=== PATIENT | female | born 1950 | race Caucasian/White ===

== ENCOUNTER → 2017-05-24 | Outpatient (CLI) | payer MEDICARE, OTHER ==
[~2017-05-24] MED LIST: ALBIPROI INH; ALBU90OI61 INH; ATEN25 PO; BENZ100A PO; DOXY100 PO; FLUSAL1005 IH; FLUSAL2505 IH; HYDACE5; HYDACE5 PO; HYDACE5325 PO; HYDR1TAB94 PO; LISI20 PO; METO25ER PO; METO50 PO; MONT10T PO; NAPR550 PO; PRED20 PO; RANI150 PO
== END ==
LOC: LAB EV 15:15
DX: N39.0 Urinary tract infection, site not specified (principal)
CPT/HCPCS: 87086

== ENCOUNTER → 2017-10-05 | Outpatient (CLI) | payer MEDICARE, OTHER | END | disposition home or self-care (01) | LOC: LAB SHORT 10:12 → LAB EV 10:12 | DX: R30.0 Dysuria (principal) | CPT/HCPCS: 87077; 87086; 87186 ==

== ENCOUNTER → 2018-05-11 | Outpatient (CLI) | payer MEDICARE, OTHER | END | disposition home or self-care (01) | LOC: LAB SHORT 13:40 → LAB EV 13:40 | DX: N39.0 Urinary tract infection, site not specified (principal) | CPT/HCPCS: 87077; 87086; 87147; 87186 ==

== ENCOUNTER 2019-12-30 14:32 | Observation (INO) | payer MEDICARE, OTHER ==
[~2019-12-30] VITALS: Ht 154.9 cm; Wt 58.9 kg
[~2019-12-30 14:32] MED LIST changes: -HYDR1TAB94 PO; -METO50 PO
[2019-12-30] MEDS ORDERED: Norco 10-325 T1 EACH PO (16:56)
[2019-12-30] MEDS ORDERED: Ventolin/Prove6.7 GM INH (16:57)
[2019-12-30] MEDS ORDERED: METO50ER PO (16:58)
[2019-12-30] MEDS ORDERED: METFORMIN HCL1000 M3 PO (16:59)
[2019-12-30] MEDS ORDERED: PANTOPRAZOLE SO40 M2 PO (17:00)
[2019-12-30 17:39] LABS: BASOPHILS ABSOLUTE AUTO 0.05 K/mm3 (0.00-0.23); BASOPHILS PERCENT AUTO 1 % (0-2); EOSINOPHILS ABSOLUTE AUTO 0.11 K/mm3 (0.00-0.68); EOSINOPHILS PERCENT AUTO 1 % (0-6); Hematocrit 41.1 % (33.0-51.0); Hemoglobin 13.1 g/dL (11.5-16.0); IMMATURE GRAN ABSOLUTE AUTO 0.02 K/mm3 (0.00-0.10); IMMATURE GRAN PERCENT AUTO 0 % (0-1); LYMPHOCYTES ABSOLUTE AUTO 2.98 K/mm3 (0.84-5.20); LYMPHOCYTES PERCENT AUTO 29 % (21-46); MONOCYTES PERCENT AUTO 5 % (4-13); Mean Corpuscular HGB 29.5 pg (26.0-34.0); Mean Corpuscular HGB Conc 31.9 g/dL (31.5-36.5); Mean Corpuscular Volume 93 fL (80-100); Mean Platelet Volume 11.1 fL (9.1-12.4); NEUTROPHILS ABSOLUTE AUTO 6.67 K/mm3 (1.96-9.15); NEUTROPHILS PERCENT AUTO 65 % (41-73); Platelet Count 199 K/mm3 (150-400); RDW Coefficient Variation 13.7 % (11.7-14.2); RDW Standard Deviation 46.8 fL (35.1-46.3); Red Blood Cell Count 4.44 M/mm3 (3.80-5.20); White Blood Cell Count 10.33 K/mm3 (4.00-11.30)
[2019-12-30 18:02] LABS: Alanine Aminotransfer (ALT/SGP 16 U/L (12-78); Albumin, Blood 3.2 g/dL (3.4-5.0); Albumin/Globulin Ratio 0.8 (0.8-1.8); Alk Phos 94 U/L (50-136); Anion Gap 5 mmol/L (6-16); Aspartate Aminotrans (AST/SGOT 15 U/L (12-37); Bilirubin, Total 0.3 mg/dL (0.1-1.0); Blood Urea Nitrogen 18 mg/dL (8-24); Bun/Creatinine Ratio 37.7 (12.0-20.0); CO2, Blood 29 mmol/L (21-32); Calcium, Blood 9.3 mg/dL (8.5-10.1); Chloride, Blood 109 mmol/L (98-108); Creatinine, Blood 0.48 mg/dL (0.40-1.00); Globulin, Blood 3.8 g/dL (2.2-4.0); Glomerular Filtration Rate >60 (60-); Glucose, Blood 163 mg/dL (70-99); Potassium, Blood 3.9 mmol/L (3.5-5.5); Sodium, Blood 143 mmol/L (136-145)
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
[2019-12-31 04:51] LABS: BASOPHILS ABSOLUTE AUTO 0.03 K/mm3 (0.00-0.23); BASOPHILS PERCENT AUTO 0 % (0-2); EOSINOPHILS ABSOLUTE AUTO 0.12 K/mm3 (0.00-0.68); EOSINOPHILS PERCENT AUTO 1 % (0-6); Hematocrit 41.2 % (33.0-51.0); Hemoglobin 12.6 g/dL (11.5-16.0); IMMATURE GRAN ABSOLUTE AUTO 0.02 K/mm3 (0.00-0.10); IMMATURE GRAN PERCENT AUTO 0 % (0-1); LYMPHOCYTES ABSOLUTE AUTO 2.92 K/mm3 (0.84-5.20); LYMPHOCYTES PERCENT AUTO 34 % (21-46); MONOCYTES ABSOLUTE AUTO 0.48 K/mm3 (0.16-1.47); MONOCYTES PERCENT AUTO 6 % (4-13); Mean Corpuscular HGB 28.6 pg (26.0-34.0); Mean Corpuscular HGB Conc 30.6 g/dL (31.5-36.5); Mean Corpuscular Volume 94 fL (80-100); Mean Platelet Volume 11.3 fL (9.1-12.4); NEUTROPHILS ABSOLUTE AUTO 5.14 K/mm3 (1.96-9.15); NEUTROPHILS PERCENT AUTO 59 % (41-73); Platelet Count 189 K/mm3 (150-400); RDW Coefficient Variation 13.9 % (11.7-14.2); RDW Standard Deviation 48.2 fL (35.1-46.3); White Blood Cell Count 8.71 K/mm3 (4.00-11.30)
--- NOTE | 2019-12-31 05:05 | NUR ---
SHIFT SUMMARY HOB ELEVATED AND O2 PER NC. FACIAL PRESTON TREATED WITH MEDICATED CREAM - SEE MAR FOR DETAILS. HAS BEEN RESTING QUIETLY WITH OCCASIONAL INTERRUPTION. CALL LIGHT IN REACH.
[2019-12-31 05:20] LABS: Albumin, Blood 3.1 g/dL (3.4-5.0); Anion Gap 5 mmol/L (6-16); Blood Urea Nitrogen 19 mg/dL (8-24); Bun/Creatinine Ratio 28.8 (12.0-20.0); CO2, Blood 29 mmol/L (21-32); Calcium, Blood 9.3 mg/dL (8.5-10.1); Chloride, Blood 107 mmol/L (98-108); Creatinine, Blood 0.66 mg/dL (0.40-1.00); Glomerular Filtration Rate >60 (60-); Glucose, Blood 189 mg/dL (70-99); Magnesium, Blood 1.8 mg/dL (1.6-2.4); Phosphorus, Blood 3.9 mg/dL (2.5-4.9); Potassium, Blood 3.8 mmol/L (3.5-5.5); Sodium, Blood 141 mmol/L (136-145)
[2019-12-31 05:37] LABS: Appearance, Urine Clear (Clear); Bilirubin, Urine Neg (Neg); Blood, Urine 4+ (Neg); Color, Urine Yellow (P-Yellow); Glucose Qualitative, Urine Neg (Neg); Ketones, Urine Neg (Neg); Leukocyte Esterase, Urine 2+ (Neg); Nitrite, Urine Pos (Neg); Protein, Urine 2+ (Neg); Urobilinogen, Urine NORM (Normal)
[2019-12-31 05:47] LABS: Bacteria Many /hpf; Red Blood Cells, Urine 0-2 /hpf (0-2); Squamous Epithelial Cells Mod /hpf (Few)
[2019-12-31] MEDS ORDERED: CEFU500T30 PO (11:37)
[2019-12-31] MEDS ORDERED: ACET325 PO (11:37)
[2019-12-31] MEDS ORDERED: CYCLOBENZAPRINE5 MG PO (11:38)
[2019-12-31] MEDS ORDERED: FAMO20 PO (11:38)
[2019-12-31] MEDS ORDERED: LISI20 PO (11:39)
[2019-12-31] MEDS ORDERED: FLUT1DIS5 INH (11:39)
[2019-12-31] MEDS ORDERED: Silvadene20 GM TOP ×2 (11:40→11:41)
[2019-12-31] MEDS ORDERED: NICO21TP TOP (11:40)
[2019-12-31] MEDS ORDERED: NAPR500 PO (11:40)
--- NOTE | 2019-12-31 12:31 | NUR ---
DISCHARGE INSTRUCTIONS REVIEWED WITH PATIENT. PRESCRIPTIONS FAXED TO [facility] IN DOWS WITH THE EXCEPTION OF THE BELLEVUE IN WHICH THE PATIENT WAS GIVEN A HARD SCRIPT. IV REMOVED. PATIENT AWAITING RIDE FOR DISCHARGE HOME.
--- NOTE | 2019-12-31 13:16 | NUR ---
PATIENT DISCHARGED HOME AT 1255.
== END 2019-12-31 13:01 | disposition home or self-care (01) ==
LOC: ER 14:32 → MEDS 14:33
PROVIDERS: ADMIT Internal Medicine Gastroenterology
DX: T20.26XA Burn of second degree of forehead and cheek, initial encounter (principal); T20.12XA Burn of first degree of lip(s), initial encounter; T20.14XA Burn of first degree of nose (septum), initial encounter; T31.0 Burns involving less than 10% of body surface; X08.8XXA Exposure to other specified smoke, fire and flames, initial encounter; N39.0 Urinary tract infection, site not specified; J44.9 Chronic obstructive pulmonary disease, unspecified; E66.01 Morbid (severe) obesity due to excess calories; G47.30 Sleep apnea, unspecified; I10 Essential (primary) hypertension; F17.210 Nicotine dependence, cigarettes, uncomplicated; K21.9 Gastro-esophageal reflux disease without esophagitis; Z79.899 Other long term (current) drug therapy
CPT/HCPCS: 16020; 36415; 80053; 80069; 81001; 83735; 85025; 87077; 87086; 87147; 87186; 96374-59; 99285-25; A9270-GY; G0378; J0360

== ENCOUNTER → 2020-04-04 | Outpatient (CLI) | payer MEDICARE, OTHER ==
[~2020-04-04] MED LIST changes: +ACET325 PO; +CEFU500T30 PO; +CYCLOBENZAPRINE5 MG PO; +FAMO20 PO; +FLUT1DIS5 INH; +METFORMIN HCL1000 M3 PO; +METO50ER PO; +NAPR500 PO; +NICO21TP TOP; +Norco 10-325 T1 EACH PO; +PANTOPRAZOLE SO40 M2 PO; +Silvadene20 GM TOP; +Ventolin/Prove6.7 GM INH
== END ==
LOC: LAB SHORT 13:37 → LAB EV 13:37
DX: N39.0 Urinary tract infection, site not specified (principal)
CPT/HCPCS: 87077; 87086; 87186

== ENCOUNTER → 2020-08-13 | Outpatient (CLI) | payer OTHER | END | disposition home or self-care (01) | LOC: PLD 19:16 → LAB SHORT 19:16 | DX: N23 Unspecified renal colic (principal) | CPT/HCPCS: 87077; 87086; 87147; 87186 ==

== ENCOUNTER 2020-09-19 02:01 | Day surgery (SDC) | payer OTHER | END 2020-09-19 22:57 | disposition home or self-care (01) | LOC: WOUND 02:01 | DX: T21.22XD Burn of second degree of abdominal wall, subsequent encounter (principal); X08.8XXD Exposure to other specified smoke, fire and flames, subsequent encounter; E11.622 Type 2 diabetes mellitus with other skin ulcer | CPT/HCPCS: A9270; G0463 ==

== ENCOUNTER 2020-09-26 00:21 | Day surgery (SDC) | payer OTHER | END 2020-09-26 22:38 | disposition home or self-care (01) | LOC: WOUND 00:21 | DX: T21.22XA Burn of second degree of abdominal wall, initial encounter (principal); E11.622 Type 2 diabetes mellitus with other skin ulcer; L98.499 Non-pressure chronic ulcer of skin of other sites with unspecified severity; X10.0XXA Contact with hot drinks, initial encounter; Z88.8 Allergy status to other drugs, medicaments and biological substances; Z88.1 Allergy status to other antibiotic agents; Z91.012 Allergy to eggs; Z88.0 Allergy status to penicillin; Z91.018 Allergy to other foods | CPT/HCPCS: A9270; G0463 ==

== ENCOUNTER 2020-10-03 00:26 | Day surgery (SDC) | payer OTHER | END 2020-10-03 22:51 | disposition home or self-care (01) | LOC: WOUND 00:26 | DX: T21.22XD Burn of second degree of abdominal wall, subsequent encounter (principal); X08.8XXD Exposure to other specified smoke, fire and flames, subsequent encounter; E11.622 Type 2 diabetes mellitus with other skin ulcer | CPT/HCPCS: A9270; G0463 ==

== ENCOUNTER 2020-10-10 03:54 | Day surgery (SDC) | payer OTHER | END 2020-10-10 22:57 | disposition home or self-care (01) | LOC: WOUND 03:54 | DX: T21.22XD Burn of second degree of abdominal wall, subsequent encounter (principal); X08.8XXD Exposure to other specified smoke, fire and flames, subsequent encounter; E11.622 Type 2 diabetes mellitus with other skin ulcer; Z88.0 Allergy status to penicillin; Z88.1 Allergy status to other antibiotic agents; Z88.8 Allergy status to other drugs, medicaments and biological substances; Z91.012 Allergy to eggs | CPT/HCPCS: G0463 ==

== ENCOUNTER 2020-10-17 05:29 | Day surgery (SDC) | payer OTHER | END 2020-10-17 22:36 | disposition home or self-care (01) | LOC: WOUND 05:29 | DX: T21.22XD Burn of second degree of abdominal wall, subsequent encounter (principal); X08.8XXD Exposure to other specified smoke, fire and flames, subsequent encounter; E11.622 Type 2 diabetes mellitus with other skin ulcer | CPT/HCPCS: A9270; G0463 ==

== ENCOUNTER 2020-10-24 03:47 | Day surgery (SDC) | payer OTHER | END 2020-10-24 22:46 | disposition home or self-care (01) | LOC: WOUND 03:47 | DX: E11.621 Type 2 diabetes mellitus with foot ulcer (principal); L97.422 Non-pressure chronic ulcer of left heel and midfoot with fat layer exposed; L97.512 Non-pressure chronic ulcer of other part of right foot with fat layer exposed | CPT/HCPCS: A9270; G0463 ==

== ENCOUNTER 2020-11-06 04:25 | Day surgery (SDC) | payer OTHER | END 2020-11-06 23:00 | disposition home or self-care (01) | LOC: WOUND 04:25 | DX: E11.621 Type 2 diabetes mellitus with foot ulcer (principal); L97.429 Non-pressure chronic ulcer of left heel and midfoot with unspecified severity; L97.519 Non-pressure chronic ulcer of other part of right foot with unspecified severity | CPT/HCPCS: A9270; G0463 ==

== ENCOUNTER 2020-12-02 20:19 | Emergency (ER) | payer OTHER | END 2020-12-03 00:11 | disposition home or self-care (01) | LOC: ER 20:19 | DX: S30.23XA Contusion of vagina and vulva, initial encounter (principal); J44.9 Chronic obstructive pulmonary disease, unspecified; K21.9 Gastro-esophageal reflux disease without esophagitis; I10 Essential (primary) hypertension; F17.210 Nicotine dependence, cigarettes, uncomplicated; Z79.84 Long term (current) use of oral hypoglycemic drugs; Z79.899 Other long term (current) drug therapy; W01.10XA Fall on same level from slipping, tripping and stumbling with subsequent striking against unspecified object, initial encounter ==

== ENCOUNTER 2020-12-22 01:14 | Emergency (ER) | payer OTHER ==
[~2020-12-22] VITALS: Ht 154.9 cm; Wt 90.7 kg
[2020-12-22 01:53] LABS: BASOPHILS ABSOLUTE AUTO 0.03 K/mm3 (0.00-0.23); BASOPHILS PERCENT AUTO 0 % (0-2); EOSINOPHILS ABSOLUTE AUTO 0.11 K/mm3 (0.00-0.68); EOSINOPHILS PERCENT AUTO 1 % (0-6); Hematocrit 40.1 % (33.0-51.0); Hemoglobin 12.3 g/dL (11.5-16.0); IMMATURE GRAN ABSOLUTE AUTO 0.03 K/mm3 (0.00-0.10); IMMATURE GRAN PERCENT AUTO 0 % (0-1); LYMPHOCYTES ABSOLUTE AUTO 2.41 K/mm3 (0.84-5.20); LYMPHOCYTES PERCENT AUTO 21 % (21-46); MONOCYTES ABSOLUTE AUTO 0.68 K/mm3 (0.16-1.47); MONOCYTES PERCENT AUTO 6 % (4-13); Mean Corpuscular HGB 26.6 pg (26.0-34.0); Mean Corpuscular HGB Conc 30.7 g/dL (31.5-36.5); Mean Corpuscular Volume 87 fL (80-100); Mean Platelet Volume 11.1 fL (9.1-12.4); NEUTROPHILS ABSOLUTE AUTO 8.48 K/mm3 (1.96-9.15); NEUTROPHILS PERCENT AUTO 72 % (41-73); Platelet Count 263 K/mm3 (150-400); RDW Coefficient Variation 14.4 % (11.7-14.2); RDW Standard Deviation 46.1 fL (35.1-46.3); Red Blood Cell Count 4.62 M/mm3 (3.80-5.20); White Blood Cell Count 11.74 K/mm3 (4.00-11.30)
[2020-12-22 02:07] LABS: Alanine Aminotransfer (ALT/SGP 19 U/L (12-78); Albumin/Globulin Ratio 0.8 (0.8-1.8); Alk Phos 90 U/L (50-136); Anion Gap 3 mmol/L (6-16); Aspartate Aminotrans (AST/SGOT 8 U/L (12-37); Bilirubin, Total 0.3 mg/dL (0.1-1.0); Blood Urea Nitrogen 21 mg/dL (8-24); Bun/Creatinine Ratio 27.2 (12.0-20.0); CO2, Blood 30 mmol/L (21-32); Calcium, Blood 9.4 mg/dL (8.5-10.1); Chloride, Blood 111 mmol/L (98-108); Creatinine, Blood 0.77 mg/dL (0.40-1.00); Globulin, Blood 3.7 g/dL (2.2-4.0); Glomerular Filtration Rate >60 (60-); Glucose, Blood 171 mg/dL (70-99); Potassium, Blood 3.6 mmol/L (3.5-5.5); Sodium, Blood 144 mmol/L (136-145); Total Protein, Blood 6.7 g/dL (6.4-8.2)
== END 2020-12-22 06:38 | disposition home or self-care (01) ==
LOC: ER 01:14
PROVIDERS: Emergency Medicine
DX: R53.1 Weakness (principal); F41.9 Anxiety disorder, unspecified; R46.2 Strange and inexplicable behavior; J44.9 Chronic obstructive pulmonary disease, unspecified; F17.200 Nicotine dependence, unspecified, uncomplicated; I10 Essential (primary) hypertension; K21.9 Gastro-esophageal reflux disease without esophagitis; Z91.018 Allergy to other foods; Z91.02 Food additives allergy status; Z79.899 Other long term (current) drug therapy; Z53.29 Procedure and treatment not carried out because of patient's decision for other reasons
CPT/HCPCS: 80053; 85025; 93005; 93010; 99284-25

== ENCOUNTER 2021-03-05 11:21 | Inpatient (IN) | payer OTHER ==
[~2021-03-05] VITALS: Ht 154.9 cm; Wt 96.0 kg
[2021-03-05 13:48] LABS: Anion Gap 3 mmol/L (6-16); Blood Urea Nitrogen 21 mg/dL (8-24); Bun/Creatinine Ratio 37.2 (12.0-20.0); CO2, Blood 28 mmol/L (21-32); Chloride, Blood 109 mmol/L (98-108); Creatinine, Blood 0.56 mg/dL (0.40-1.00); Glomerular Filtration Rate >60 (60-); Glucose, Blood 138 mg/dL (70-99); Potassium, Blood 4.4 mmol/L (3.5-5.5); Sodium, Blood 140 mmol/L (136-145)
[2021-03-05 13:51] LABS: BASOPHILS ABSOLUTE AUTO 0.02 K/mm3 (0.00-0.23); BASOPHILS PERCENT AUTO 0 % (0-2); EOSINOPHILS ABSOLUTE AUTO 0.17 K/mm3 (0.00-0.68); EOSINOPHILS PERCENT AUTO 2 % (0-6); Hematocrit 37.5 % (33.0-51.0); Hemoglobin 11.3 g/dL (11.5-16.0); IMMATURE GRAN ABSOLUTE AUTO 0.02 K/mm3 (0.00-0.10); IMMATURE GRAN PERCENT AUTO 0 % (0-1); LYMPHOCYTES ABSOLUTE AUTO 2.49 K/mm3 (0.84-5.20); LYMPHOCYTES PERCENT AUTO 31 % (21-46); MONOCYTES ABSOLUTE AUTO 0.48 K/mm3 (0.16-1.47); MONOCYTES PERCENT AUTO 6 % (4-13); Mean Corpuscular HGB 25.1 pg (26.0-34.0); Mean Corpuscular HGB Conc 30.1 g/dL (31.5-36.5); Mean Corpuscular Volume 83 fL (80-100); Mean Platelet Volume 11.5 fL (9.1-12.4); NEUTROPHILS ABSOLUTE AUTO 4.95 K/mm3 (1.96-9.15); NEUTROPHILS PERCENT AUTO 61 % (41-73); Platelet Count 207 K/mm3 (150-400); RDW Standard Deviation 45.6 fL (35.1-46.3); Red Blood Cell Count 4.51 M/mm3 (3.80-5.20); White Blood Cell Count 8.13 K/mm3 (4.00-11.30)
[2021-03-05] MEDS ORDERED: Pyridium100 MG PO (16:54)
[2021-03-05] MEDS ORDERED: GLIP5 PO (16:55)
[2021-03-05] MEDS ORDERED: BUME1 PO (16:55)
[2021-03-05] MEDS ORDERED: IBUP800 PO (16:56)
[2021-03-05] MEDS ORDERED: MIRALAX17 GM PO (16:56)
[2021-03-05] MEDS ORDERED: ANTIFUNGAL POWD71 GM TOP (17:00)
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
[2021-03-06 04:46] LABS: BASOPHILS ABSOLUTE AUTO 0.03 K/mm3 (0.00-0.23); BASOPHILS PERCENT AUTO 0 % (0-2); EOSINOPHILS ABSOLUTE AUTO 0.16 K/mm3 (0.00-0.68); EOSINOPHILS PERCENT AUTO 2 % (0-6); Hematocrit 35.9 % (33.0-51.0); Hemoglobin 10.8 g/dL (11.5-16.0); IMMATURE GRAN ABSOLUTE AUTO 0.03 K/mm3 (0.00-0.10); IMMATURE GRAN PERCENT AUTO 0 % (0-1); LYMPHOCYTES ABSOLUTE AUTO 2.62 K/mm3 (0.84-5.20); LYMPHOCYTES PERCENT AUTO 36 % (21-46); MONOCYTES ABSOLUTE AUTO 0.41 K/mm3 (0.16-1.47); MONOCYTES PERCENT AUTO 6 % (4-13); Mean Corpuscular HGB 25.7 pg (26.0-34.0); Mean Corpuscular HGB Conc 30.1 g/dL (31.5-36.5); Mean Corpuscular Volume 85 fL (80-100); Mean Platelet Volume 10.6 fL (9.1-12.4); NEUTROPHILS ABSOLUTE AUTO 4.07 K/mm3 (1.96-9.15); NEUTROPHILS PERCENT AUTO 56 % (41-73); Platelet Count 259 K/mm3 (150-400); RDW Coefficient Variation 14.9 % (11.7-14.2); RDW Standard Deviation 45.7 fL (35.1-46.3); Red Blood Cell Count 4.21 M/mm3 (3.80-5.20); White Blood Cell Count 7.32 K/mm3 (4.00-11.30)
[2021-03-06 05:50] LABS: Anion Gap 3 mmol/L (6-16); Blood Urea Nitrogen 19 mg/dL (8-24); Bun/Creatinine Ratio 32.1 (12.0-20.0); CO2, Blood 31 mmol/L (21-32); Calcium, Blood 9.1 mg/dL (8.5-10.1); Chloride, Blood 110 mmol/L (98-108); Creatinine, Blood 0.59 mg/dL (0.40-1.00); Glomerular Filtration Rate >60 (60-); Glucose, Blood 142 mg/dL (70-99); Potassium, Blood 3.1 mmol/L (3.5-5.5); Sodium, Blood 144 mmol/L (136-145)
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
--- NOTE | 2021-03-06 14:49 | NUR ---
PT WAS UNABLE TO HOLD STILL FOR GOOD IMAGES HAVING AN MRI.
[2021-03-06 16:27] LABS: Vancomycin, Trough 16.8 ug/mL (5.0-10.0)
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
--- NOTE | 2021-03-06 18:00 | NUR ---
PT HAS HAD HER SYSTOLIC RUNNING 170s. DR MARTINEZ WAS NOTIFIED AND ADDED MEDICATION TO EMAR WITH INSTRUCTIONS TO MONITOR BP AT THIS TIME.
[2021-03-07 05:22] LABS: BASOPHILS ABSOLUTE AUTO 0.03 K/mm3 (0.00-0.23); BASOPHILS PERCENT AUTO 1 % (0-2); EOSINOPHILS ABSOLUTE AUTO 0.13 K/mm3 (0.00-0.68); EOSINOPHILS PERCENT AUTO 2 % (0-6); Hematocrit 36.1 % (33.0-51.0); Hemoglobin 10.4 g/dL (11.5-16.0); IMMATURE GRAN ABSOLUTE AUTO 0.02 K/mm3 (0.00-0.10); IMMATURE GRAN PERCENT AUTO 0 % (0-1); LYMPHOCYTES ABSOLUTE AUTO 2.18 K/mm3 (0.84-5.20); LYMPHOCYTES PERCENT AUTO 34 % (21-46); MONOCYTES ABSOLUTE AUTO 0.47 K/mm3 (0.16-1.47); MONOCYTES PERCENT AUTO 7 % (4-13); Mean Corpuscular HGB 25.1 pg (26.0-34.0); Mean Corpuscular HGB Conc 28.8 g/dL (31.5-36.5); Mean Corpuscular Volume 87 fL (80-100); Mean Platelet Volume 10.5 fL (9.1-12.4); NEUTROPHILS PERCENT AUTO 55 % (41-73); Platelet Count 254 K/mm3 (150-400); RDW Coefficient Variation 14.7 % (11.7-14.2); RDW Standard Deviation 47.1 fL (35.1-46.3); Red Blood Cell Count 4.14 M/mm3 (3.80-5.20); White Blood Cell Count 6.33 K/mm3 (4.00-11.30)
[2021-03-07 05:51] LABS: Anion Gap 3 mmol/L (6-16); Blood Urea Nitrogen 16 mg/dL (8-24); Bun/Creatinine Ratio 26.3 (12.0-20.0); CO2, Blood 32 mmol/L (21-32); Chloride, Blood 111 mmol/L (98-108); Creatinine, Blood 0.61 mg/dL (0.40-1.00); Glomerular Filtration Rate >60 (60-); Glucose, Blood 151 mg/dL (70-99); Potassium, Blood 3.3 mmol/L (3.5-5.5); Sodium, Blood 146 mmol/L (136-145)
--- NOTE | 2021-03-07 06:50 | NUR ---
SHIFT SUMMARY PATIENT ALERT AND ORIENTED X3. MEDICATED PER EMAR FOR PAIN. NO COMPLAINTS OF SHORTNESS OF BREATH. NO ACUTE ISSUES NOTED OVERNIGHT. CALL LIGHT WITHIN REACH. REPORT GIVEN TO ONCOMING RN.
--- NOTE | 2021-03-07 18:30 | NUR ---
SHIFT SUMMARY PATIENT IS ALERT AND ORIENTED X3, CAN BECOME CONFUSED AT TIMES. PATIENT WAS UNCOOPERATIVE WITH PHYSICAL THERAPY AND OCCUPATIONAL THERAPY THIS SHIFT. HOPEFULLY TOMORROW THEY WILL MORE WILLING TO PARTICIPATE. PATIENT HAD AN MRI ON THEIR RIGHT LATERAL FOOT THIS SHIFT. PATIENT HAS BEEN MEDICATED THIS SHIFT PER THE EMAR FOR PAIN. PATIENT IS RECEIVING VANCOMYOCIN CURRENTLY. NO ACUTE CHANGES THIS SHIFT, VITAL SIGNS STABLE. THIS NURSE WILL CONTINUE TO CARE FOR PATIENT UNTIL REPORT IS MADE TO THE ONCOMING NURSE.
--- NOTE | 2021-03-08 04:45 | NUR ---
SUMMARY NO NEW ISSUES NOTED. PT PAIN TX PER EMAR. PT REPOSITIONED FREQUENTLY. PT SLEPT FOR MOST OF SHIFT. PT CURRENTLY SLEEPING IN NO DISTRESS. CALL LIGHT IN REACH.
[2021-03-08 04:56] LABS: BASOPHILS ABSOLUTE AUTO 0.03 K/mm3 (0.00-0.23); BASOPHILS PERCENT AUTO 0 % (0-2); EOSINOPHILS ABSOLUTE AUTO 0.19 K/mm3 (0.00-0.68); EOSINOPHILS PERCENT AUTO 3 % (0-6); Hematocrit 36.7 % (33.0-51.0); Hemoglobin 10.8 g/dL (11.5-16.0); IMMATURE GRAN ABSOLUTE AUTO 0.02 K/mm3 (0.00-0.10); IMMATURE GRAN PERCENT AUTO 0 % (0-1); LYMPHOCYTES ABSOLUTE AUTO 2.69 K/mm3 (0.84-5.20); LYMPHOCYTES PERCENT AUTO 35 % (21-46); MONOCYTES ABSOLUTE AUTO 0.52 K/mm3 (0.16-1.47); MONOCYTES PERCENT AUTO 7 % (4-13); Mean Corpuscular HGB 25.4 pg (26.0-34.0); Mean Corpuscular HGB Conc 29.4 g/dL (31.5-36.5); Mean Corpuscular Volume 86 fL (80-100); Mean Platelet Volume 10.8 fL (9.1-12.4); NEUTROPHILS ABSOLUTE AUTO 4.25 K/mm3 (1.96-9.15); NEUTROPHILS PERCENT AUTO 55 % (41-73); Platelet Count 250 K/mm3 (150-400); RDW Coefficient Variation 14.7 % (11.7-14.2); RDW Standard Deviation 46.6 fL (35.1-46.3); Red Blood Cell Count 4.25 M/mm3 (3.80-5.20)
[2021-03-08 05:26] LABS: Albumin, Blood 2.3 g/dL (3.4-5.0); Anion Gap 1 mmol/L (6-16); Blood Urea Nitrogen 18 mg/dL (8-24); Bun/Creatinine Ratio 32.8 (12.0-20.0); CO2, Blood 34 mmol/L (21-32); Calcium, Blood 9.3 mg/dL (8.5-10.1); Chloride, Blood 110 mmol/L (98-108); Creatinine, Blood 0.55 mg/dL (0.40-1.00); Glomerular Filtration Rate >60 (60-); Glucose, Blood 156 mg/dL (70-99); Phosphorus, Blood 3.6 mg/dL (2.5-4.9); Potassium, Blood 3.7 mmol/L (3.5-5.5); Sodium, Blood 145 mmol/L (136-145)
[2021-03-08 17:21] LABS: Vancomycin, Trough 23.3 ug/mL (5.0-10.0)
--- NOTE | 2021-03-08 17:34 | NUR ---
CRITICAL LAB VALUE OF BINU TROPH 23.3 READ TO COMMISSIONS COORDINATOR DARLENE AT 1731.
--- NOTE | 2021-03-08 17:36 | NUR ---
SHIFT SUMMARY PATIENT IS A/O X3, DOES GET CONFUSED AT TIMES BUT REDIRECTABLE. PATIENT IS ON 4LITERS OF O2 SATTING ABOVE 90%. PATIENT WAS STARTED ON GLUCOPHAGE THIS SHIFT. THIS NURSE DRESSED THE PATIENT'S WOUND ON FOOT. VITAL SIGNS STABLE, GIVEN TYLENOL FOR ARTHRITIC PAIN AND FOOT. PATIENT EXPRESSES THEY WANT TO GO HOME. PATIENT MAY BE HERE UNTIL WEDNESDAY WHEN A SURGEON CAN BE CONSULTED ABOUT THEIR FOOT. PATIENT STILL UNCOOPERATIVE WITH THERAPY, BUT DID ROLL WELL IN BED WITH THIS NURSE AND INTERNATIONAL LOGISTICS COORDINATOR. CRITICAL VANCO TROPH OF 23.3 CALLED TO PHARMACY AT 1731 THIS SHIFT. WAITING TO THE DOSE ADJUSTMENT. THIS NURSE WILL CONTINUE TO MONITOR THE PATIENT UNTIL REPORT IS GIVEN TO THE ONCOMING NURSE.
--- NOTE | 2021-03-08 23:23 | NUR ---
REMOVED LEAKING IV FROM R.FA AND REPLACED W/NEW 22G IV TO R.WRIST, IV FLUSHED W/20MLS NS AND SL. NO IV WAS PRESENT TO L.FA AT THE TIME OF THIS NEW IV INSERTION.
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
[2021-03-09 05:16] LABS: BASOPHILS ABSOLUTE AUTO 0.03 K/mm3 (0.00-0.23); BASOPHILS PERCENT AUTO 0 % (0-2); EOSINOPHILS ABSOLUTE AUTO 0.19 K/mm3 (0.00-0.68); EOSINOPHILS PERCENT AUTO 2 % (0-6); Hematocrit 38.1 % (33.0-51.0); Hemoglobin 11.2 g/dL (11.5-16.0); IMMATURE GRAN ABSOLUTE AUTO 0.02 K/mm3 (0.00-0.10); IMMATURE GRAN PERCENT AUTO 0 % (0-1); LYMPHOCYTES ABSOLUTE AUTO 2.59 K/mm3 (0.84-5.20); LYMPHOCYTES PERCENT AUTO 31 % (21-46); MONOCYTES ABSOLUTE AUTO 0.58 K/mm3 (0.16-1.47); MONOCYTES PERCENT AUTO 7 % (4-13); Mean Corpuscular HGB 25.7 pg (26.0-34.0); Mean Corpuscular HGB Conc 29.4 g/dL (31.5-36.5); Mean Corpuscular Volume 87 fL (80-100); Mean Platelet Volume 11.1 fL (9.1-12.4); NEUTROPHILS ABSOLUTE AUTO 4.89 K/mm3 (1.96-9.15); NEUTROPHILS PERCENT AUTO 59 % (41-73); Platelet Count 243 K/mm3 (150-400); RDW Coefficient Variation 14.7 % (11.7-14.2); RDW Standard Deviation 47.3 fL (35.1-46.3); Red Blood Cell Count 4.36 M/mm3 (3.80-5.20)
[2021-03-09 05:50] LABS: Albumin, Blood 2.5 g/dL (3.4-5.0); Anion Gap 3 mmol/L (6-16); Blood Urea Nitrogen 18 mg/dL (8-24); Bun/Creatinine Ratio 29.6 (12.0-20.0); CO2, Blood 32 mmol/L (21-32); Calcium, Blood 9.6 mg/dL (8.5-10.1); Chloride, Blood 108 mmol/L (98-108); Creatinine, Blood 0.61 mg/dL (0.40-1.00); Glomerular Filtration Rate >60 (60-); Glucose, Blood 150 mg/dL (70-99); Phosphorus, Blood 3.5 mg/dL (2.5-4.9); Potassium, Blood 3.9 mmol/L (3.5-5.5); Sodium, Blood 143 mmol/L (136-145)
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
--- NOTE | 2021-03-09 17:34 | NUR ---
SHIFT SUMMARY PATIENT IS ALERT AND ORIENTED X3, FORGETFUL AT TIMES. PATIENT IS ON 4 LITERS PER MINUTE VIA HIGH FLOW NASAL CANNULA SATTING ABOVE 90% PATIENT NEEDS CONSTANT REMINDER TO KEEP THE CANNULA IN. BLOOD SUGAR CHECKS REDUCED TO MORNING AND EVENING. PATIENT'S GABAPENTIN WAS DC'D COULD HAVE BEEN CONTRIBUTING TO SOMNOLENCE. PATIENTS SON AT BEDSIDE TODAY, PROVIDED THEM WITH AN UPDATE. PATIENT'S SON SAYS THE DROWSINESS IS THE PATIENT'S BASELINE AT HOME. NO ACUTE CHANGES THIS SHIFT. THIS NURSE WILL CONTINUE TO CARE FOR PATIENT UNTIL SHIFT REPORT IS GIVEN TO ONCOMING NURSE.
--- NOTE | 2021-03-10 04:41 | NUR ---
VITAL SIGNS STABLE. PAIN MEDICATION ADMINISTERED. PT HAS BEEN COOPERATIVE. NO NEW ISSUES NOTED, SAFTEY MEASURES IN PLACE. WILL CONTINUE TO MONITOR UNTIL CARE IS ASSUME BY DAY NURSE
[2021-03-10 05:28] LABS: BASOPHILS ABSOLUTE AUTO 0.04 K/mm3 (0.00-0.23); BASOPHILS PERCENT AUTO 1 % (0-2); EOSINOPHILS ABSOLUTE AUTO 0.22 K/mm3 (0.00-0.68); EOSINOPHILS PERCENT AUTO 3 % (0-6); Hematocrit 36.7 % (33.0-51.0); Hemoglobin 10.7 g/dL (11.5-16.0); IMMATURE GRAN ABSOLUTE AUTO 0.03 K/mm3 (0.00-0.10); IMMATURE GRAN PERCENT AUTO 0 % (0-1); LYMPHOCYTES ABSOLUTE AUTO 2.71 K/mm3 (0.84-5.20); LYMPHOCYTES PERCENT AUTO 34 % (21-46); MONOCYTES ABSOLUTE AUTO 0.57 K/mm3 (0.16-1.47); MONOCYTES PERCENT AUTO 7 % (4-13); Mean Corpuscular HGB 25.4 pg (26.0-34.0); Mean Corpuscular HGB Conc 29.2 g/dL (31.5-36.5); Mean Corpuscular Volume 87 fL (80-100); Mean Platelet Volume 11.2 fL (9.1-12.4); NEUTROPHILS ABSOLUTE AUTO 4.44 K/mm3 (1.96-9.15); NEUTROPHILS PERCENT AUTO 56 % (41-73); Platelet Count 241 K/mm3 (150-400); RDW Coefficient Variation 14.9 % (11.7-14.2); RDW Standard Deviation 47.4 fL (35.1-46.3); Red Blood Cell Count 4.21 M/mm3 (3.80-5.20); White Blood Cell Count 8.01 K/mm3 (4.00-11.30)
[2021-03-10 06:06] LABS: Albumin, Blood 2.5 g/dL (3.4-5.0); Anion Gap 1 mmol/L (6-16); Blood Urea Nitrogen 17 mg/dL (8-24); Bun/Creatinine Ratio 28.1 (12.0-20.0); CO2, Blood 35 mmol/L (21-32); Calcium, Blood 9.5 mg/dL (8.5-10.1); Chloride, Blood 107 mmol/L (98-108); Creatinine, Blood 0.61 mg/dL (0.40-1.00); Glomerular Filtration Rate >60 (60-); Glucose, Blood 139 mg/dL (70-99); Phosphorus, Blood 3.3 mg/dL (2.5-4.9); Potassium, Blood 3.7 mmol/L (3.5-5.5); Sodium, Blood 143 mmol/L (136-145)
--- NOTE | 2021-03-10 13:24 | NUR ---
Pt was unsure as to if she's had DM diet education in the past. Pt was interested in education but requested RD return at later time d/t current discomfort. Briefly discussed elevated a1c and possible causes (certain dietary changes and recent reduced mobility). Briefly discussed focusing on controlling CHO portions vs trying to exclude CHOs in diet.
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
--- NOTE | 2021-03-10 18:17 | NUR ---
Alert and oriented x3 , Able to make needs known. c/o left hip and right pain , xxycodone 5 mg po was given , it was effective. Tylenol was also given , it was effective for mild pain. Continue on ABO therapy , no adverse effects noted. Vital signs are stable. Right foot dressing CDI.Able to call appropraaitely and call light within reach. Continue to monitor.
[2021-03-11 05:42] LABS: BASOPHILS ABSOLUTE AUTO 0.04 K/mm3 (0.00-0.23); BASOPHILS PERCENT AUTO 1 % (0-2); EOSINOPHILS ABSOLUTE AUTO 0.24 K/mm3 (0.00-0.68); EOSINOPHILS PERCENT AUTO 3 % (0-6); Hematocrit 38.1 % (33.0-51.0); Hemoglobin 11.1 g/dL (11.5-16.0); IMMATURE GRAN ABSOLUTE AUTO 0.02 K/mm3 (0.00-0.10); IMMATURE GRAN PERCENT AUTO 0 % (0-1); LYMPHOCYTES ABSOLUTE AUTO 3.02 K/mm3 (0.84-5.20); LYMPHOCYTES PERCENT AUTO 34 % (21-46); MONOCYTES ABSOLUTE AUTO 0.68 K/mm3 (0.16-1.47); MONOCYTES PERCENT AUTO 8 % (4-13); Mean Corpuscular HGB 25.2 pg (26.0-34.0); Mean Corpuscular HGB Conc 29.1 g/dL (31.5-36.5); Mean Corpuscular Volume 86 fL (80-100); Mean Platelet Volume 10.6 fL (9.1-12.4); NEUTROPHILS ABSOLUTE AUTO 4.77 K/mm3 (1.96-9.15); NEUTROPHILS PERCENT AUTO 54 % (41-73); Platelet Count 252 K/mm3 (150-400); RDW Coefficient Variation 15.2 % (11.7-14.2); RDW Standard Deviation 47.8 fL (35.1-46.3); Red Blood Cell Count 4.41 M/mm3 (3.80-5.20); White Blood Cell Count 8.77 K/mm3 (4.00-11.30)
[2021-03-11 06:10] LABS: Alanine Aminotransfer (ALT/SGP 20 U/L (12-78); Albumin, Blood 2.5 g/dL (3.4-5.0); Albumin/Globulin Ratio 0.6 (0.8-1.8); Alk Phos 81 U/L (50-136); Anion Gap 3 mmol/L (6-16); Aspartate Aminotrans (AST/SGOT 26 U/L (12-37); Bilirubin, Total 0.3 mg/dL (0.1-1.0); Blood Urea Nitrogen 21 mg/dL (8-24); Bun/Creatinine Ratio 32.7 (12.0-20.0); CO2, Blood 36 mmol/L (21-32); Calcium, Blood 9.4 mg/dL (8.5-10.1); Chloride, Blood 105 mmol/L (98-108); Creatinine, Blood 0.64 mg/dL (0.40-1.00); Globulin, Blood 4.1 g/dL (2.2-4.0); Glomerular Filtration Rate >60 (60-); Glucose, Blood 150 mg/dL (70-99); Potassium, Blood 3.8 mmol/L (3.5-5.5); Sodium, Blood 144 mmol/L (136-145); Total Protein, Blood 6.6 g/dL (6.4-8.2)
--- NOTE | 2021-03-11 06:12 | NUR ---
PATIENT IS ALERT AND ORIENTED X4. PATIENT NOTED TO USE THE O2 NC IN HER MOUTH AND WHEN REDIRECTED PATIENT STATED THE NC IRRITATES HER NOSTRILS. PATIENT CONTINUES ON VANCOMYCIN IV. PATIENT'S DRESSING TO FOOT WOUND INTACT. PATIENT C/O PAIN TO HER FOOT WOUND, PATIENT WAS GIVEN PRN OXYCODONE 5MG X2 THIS SHIFT. PATIENT CONTINUES ON 02 AT 4L NCHIGH FLOW. WILL CONTINUE TO MONITOR.
[2021-03-11 15:19] LABS: SARS-Cov-2 (COVID-19) PCR, MMC NEGATIVE (NEGATIVE)
--- NOTE | 2021-03-11 18:32 | NUR ---
PT ARRIVED VIA BED FROM . PT C/O PAIN UPON ARRIVAL. PT CONSTANTLY REACHING UNDER GOWN AND COVERS TOWARD GROIN ACCESS SITE. PT EDUCATED ON IMPORTANCE OF LEAVING ACCESS SITE ALONE. PT RESTLESS AND ATTEMPTS TO REPOSITION SELF FREQUENTLY. RIGHT FOOT WOUND CLEANED AND REDRESSED. T-97.9 RR-22 BP-131/67 SpO2-90% HR-88
--- NOTE | 2021-03-11 18:38 | NUR ---
Alert and oriented x3 , c/o right LE pain , oxycodone and tylenol was given and it was effective. Vital signs are stable. Continue on Vacomycin antibiotic treatment for right LE , no adverse effects noted. [facility]fered to [facility] for right LE revascularization. Reported given to PCU nurse talat. Continue to monitor.
--- NOTE | 2021-03-11 19:40 | NUR ---
PT TRANSFER PT TRANSFERRED TO UNIT FROM . OXYGEN SATURATION MAINTIANED ABOVE 90% ON 4 L OF OXYGEN VIA NC. L ANGIO SITE WNL. DRESSING C/D/I. VS STABLE. DRESSING C/D/I TO RLE. PT CONT TO ATTEMPT TO GET OUT OF BED. CONT TO DIRECT PT TO LAY FLAT. PT ON CAMERA. MEDICATED FOR PAIN. SEE EMAR. REPORT GIVEN TO ZULAY RN BY DESIRAE CAZARES.
[2021-03-11 20:57] LABS: Vancomycin, Trough 21.6 ug/mL (5.0-10.0)
[2021-03-12 04:04] LABS: BASOPHILS ABSOLUTE AUTO 0.02 K/mm3 (0.00-0.23); BASOPHILS PERCENT AUTO 0 % (0-2); EOSINOPHILS ABSOLUTE AUTO 0.11 K/mm3 (0.00-0.68); EOSINOPHILS PERCENT AUTO 2 % (0-6); Hematocrit 36.6 % (33.0-51.0); Hemoglobin 10.9 g/dL (11.5-16.0); IMMATURE GRAN ABSOLUTE AUTO 0.01 K/mm3 (0.00-0.10); IMMATURE GRAN PERCENT AUTO 0 % (0-1); LYMPHOCYTES ABSOLUTE AUTO 2.28 K/mm3 (0.84-5.20); LYMPHOCYTES PERCENT AUTO 31 % (21-46); MONOCYTES ABSOLUTE AUTO 0.45 K/mm3 (0.16-1.47); MONOCYTES PERCENT AUTO 6 % (4-13); Mean Corpuscular HGB 25.7 pg (26.0-34.0); Mean Corpuscular HGB Conc 29.8 g/dL (31.5-36.5); Mean Corpuscular Volume 86 fL (80-100); Mean Platelet Volume 11.1 fL (9.1-12.4); NEUTROPHILS ABSOLUTE AUTO 4.41 K/mm3 (1.96-9.15); NEUTROPHILS PERCENT AUTO 61 % (41-73); Platelet Count 240 K/mm3 (150-400); RDW Coefficient Variation 15.2 % (11.7-14.2); RDW Standard Deviation 47.5 fL (35.1-46.3); Red Blood Cell Count 4.24 M/mm3 (3.80-5.20); White Blood Cell Count 7.28 K/mm3 (4.00-11.30)
[2021-03-12 04:21] LABS: Alanine Aminotransfer (ALT/SGP 26 U/L (12-78); Albumin, Blood 2.4 g/dL (3.4-5.0); Albumin/Globulin Ratio 0.6 (0.8-1.8); Alk Phos 80 U/L (50-136); Anion Gap 2 mmol/L (6-16); Aspartate Aminotrans (AST/SGOT 28 U/L (12-37); Bilirubin, Total 0.3 mg/dL (0.1-1.0); Blood Urea Nitrogen 24 mg/dL (8-24); Bun/Creatinine Ratio 30.3 (12.0-20.0); CO2, Blood 34 mmol/L (21-32); Chloride, Blood 109 mmol/L (98-108); Creatinine, Blood 0.79 mg/dL (0.40-1.00); Globulin, Blood 4.1 g/dL (2.2-4.0); Glomerular Filtration Rate >60 (60-); Glucose, Blood 113 mg/dL (70-99); Potassium, Blood 3.9 mmol/L (3.5-5.5); Sodium, Blood 145 mmol/L (136-145); Total Protein, Blood 6.5 g/dL (6.4-8.2)
--- NOTE | 2021-03-12 05:03 | NUR ---
PATIENT LETHARGIC THROUGHOUT THE NIGHT, ABLE TO AWAKEN TO VOICE ALERT AND ORIENTATED WAXES AND WANES WITH TIME, FOLLOWS COMMANDS, OXYGEN DEMANDS INCREASED FROM 4L HFNC TO 8L HFNC PATIENT HAS DIFFICULTY KEEPING NC IN MOUTHE AND IS UNABLE TO USE THE NARES FROM PREVIOUS INJURY. RIGHT FOOT DRESSING INTACT AND ELEVATED, LEFT LEG REMAINED STRAIGHT, HOB REMAINED <20 DEGREES, PATIENT HAS SCARRING TO NARES, EARS, MOUTH R/T PREVIOUS INJURY, SCRATCHES ALL OVER BODY, YEASTLIKE RASH UNDER BILATERAL BREAST FOLDS, GROIN, ABDOMINAL FOLDS, BUTTOCKS BED BATH GIVEN PATIENT REFUSED ANY POWDER AND/OR CREAM, PATIENT HAD ONE INCONTINENT EPISODE BED WAS SOAKED WHILE SLEEPING AND COMPLETE BED CHANGE. VITALS WERE STABLE THROUGHOUT THE NIGHT AND AFEBRILE. PATIENT HAS BED ALARM ON, CALL LIGHT WITHIN REACH.
--- NOTE | 2021-03-12 09:38 | NUR ---
Update 03/12/21: Multiple attempts to reach patient's case filler Elijah Janice. No return calls at this point. Contacted Cristy Fraire with [employer] to advise. Reviewed patient's situation and Cristy states that if pt. is capable of making her own decisions and chooses not to allow for an in-home caregiver or to go to a long-term facility, their hands are tied. She recommended psych consult to determine if she appropriate to be making those decisions. She also recommended that I contact Elijah's supervisor precision optical elements Jasmina this afternoon if I do not receive a return call from Elijah. Plan to contact APS to follow-up and Jasmina this afternoon. Pt. is already in the process of qualifying for long-term care and in-home caregiver assistance. Those services should be available to her at time of discharge. Additionally, she is likely to qualify for SNF. Plan to discuss options with patient.
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
--- NOTE | 2021-03-12 11:06 | NUR ---
CARE ASSUMPTION THIS RN ASSUMED CARE OF THE PATIETN AT 0700. PATIENT IS A/OX4. VSS. SPO2>90% ON 6L NC. TELE SR. PATIENT REPORTS BOTTOM PAIN AND RECEIVED PAIN MEDICATION AND REPOSTIONING FOR RELIEF. PATIENT CAN HAVE HAD ABOVE 20 DEGREE NOW. CALL LIGHT WITHIN REACH. WILL CONTINUE TO MONITOR AND PROVIDE CARE.
--- NOTE | 2021-03-12 17:12 | NUR ---
SHIFT SUMMARY PATIENT A/OX4. VSS. TELE SR. SPO2 >90% ON 5L NC. PATIENT MOOD HAS BEEN CRANKY THROUGHOUT THE SHIFT. PATIENT REFUSED BED BATH, THIS RN AND SENIOR BACK END JAVA DEVELOPER ASKED MULTIPLE TIMES AND PATIENT REFUSED. WHEN CLEANING PATIENT FROM AN INCONTINENT EPISODE PATIENT SAID SHE DIDN'T CARE TO BE CLEANED UP, WHICH WE SAID WE NEEDED TO AND IT PREVENTS SKIN BREAKDOWN. PATIENT IS NON COMPLIANT WITH CARE AT TIMES, SUCH REPOSITIONING AND SKIN CARE. DRESSING CHANGED ON RIGHT TOE AND LEFT FEMORAL ACCESS SITE. PATIENT HAS COMPLAINED OF BOTTOM PAIN THROUGHOUT THE SHIFT. PATIENT WILL REPOSITION WHEN SHE FEELS LIKE IT, BUT WE ENCOURAGE EVERY TWO HOURS. WE WILL REPOSITION, BUT THEN SHE WILL TAKE THE PILLOWS OUT. CALL LIGHT WITHIN REACH AND WILL CONTINUE TO MONITOR AND PROVIDE CARE.
--- NOTE | 2021-03-12 21:20 | NUR ---
ASSUMED CARE OF PATIENT AT APPROXIMATELY [address] RN AND MARTHA Sahu RN. PATIENT ALERT AND ORIENTED X4; FORGETFUL AT TIMES. PATIENT REPORTS PAIN "IN BUTT"; MEDICATED PER EMAR; REPOSISTIONED FREQUENTLY. PATIENT DENIES DIZZINESS OR NAUSEA. BEDREST; Q2H TURNS; DRESSING CHANGED TO LEFT SIDE. MEDICAL NO TELE STATUS; INCONTINENT OF URINE; ATTENDS IN PLACE; REFUSES CARE PER REPROT. PIV S/L. OXYGEN SATURATION ABOVE 90% ON 4LPM VIA NC.
[2021-03-13 04:09] LABS: BASOPHILS ABSOLUTE AUTO 0.02 K/mm3 (0.00-0.23); BASOPHILS PERCENT AUTO 0 % (0-2); EOSINOPHILS PERCENT AUTO 5 % (0-6); Hematocrit 35.7 % (33.0-51.0); Hemoglobin 10.3 g/dL (11.5-16.0); IMMATURE GRAN ABSOLUTE AUTO 0.02 K/mm3 (0.00-0.10); IMMATURE GRAN PERCENT AUTO 0 % (0-1); LYMPHOCYTES ABSOLUTE AUTO 1.71 K/mm3 (0.84-5.20); LYMPHOCYTES PERCENT AUTO 27 % (21-46); MONOCYTES ABSOLUTE AUTO 0.45 K/mm3 (0.16-1.47); MONOCYTES PERCENT AUTO 7 % (4-13); Mean Corpuscular HGB 25.1 pg (26.0-34.0); Mean Corpuscular HGB Conc 28.9 g/dL (31.5-36.5); Mean Corpuscular Volume 87 fL (80-100); Mean Platelet Volume 11.3 fL (9.1-12.4); NEUTROPHILS ABSOLUTE AUTO 3.75 K/mm3 (1.96-9.15); NEUTROPHILS PERCENT AUTO 60 % (41-73); Platelet Count 210 K/mm3 (150-400); RDW Coefficient Variation 15.5 % (11.7-14.2); RDW Standard Deviation 49.7 fL (35.1-46.3); White Blood Cell Count 6.25 K/mm3 (4.00-11.30)
[2021-03-13 04:33] LABS: Albumin, Blood 2.4 g/dL (3.4-5.0); Albumin/Globulin Ratio 0.6 (0.8-1.8); Bilirubin, Total 0.3 mg/dL (0.1-1.0); Bun/Creatinine Ratio 29.5 (12.0-20.0); Calcium, Blood 8.7 mg/dL (8.5-10.1); Creatinine, Blood 1.05 mg/dL (0.40-1.00); Globulin, Blood 3.8 g/dL (2.2-4.0); Potassium, Blood 3.9 mmol/L (3.5-5.5); Total Protein, Blood 6.2 g/dL (6.4-8.2)
--- NOTE | 2021-03-13 06:52 | NUR ---
PATIENT SLEPT ABOUT SEVEN HOURS; REPORTS SHE WANTS TO GO HOME TODAY; OXYGEN NEEDS INCREASED WHEN SLEEPING; PATIENT REMOVES OXYGEN AT TIMES. NO OTHER ACUTE CHANGES.
--- NOTE | 2021-03-13 09:29 | NUR ---
CARE ASSUMPTION ASSUMED CARE FROM [address]UD[address] RN AT 0700 THIS MORNING. PATIENT IS A/OX4. VSS. SPO2 >90% ON 4L NC. FREQUENTLY PULLS OFF O2 AND NEEDS REMINDING TO KEEP IT ON. MED STATUS NO TELE. PATIENT HAD A BED BATH THIS MORNING. PATIENT COMPLAINS OF BOTTOM PAIN, REPOSITIONING AND PAIN MED FROM EMAR HELPS CONTROL THIS. Q2HR REPOSITIONING. PATIENT IS INCONTINENT. PATIENT MD AND CARE MANAGMENT IN TO SEE PATIENT THIS MORNING DISCUSSING PATIETN PLAN, STATING THAT THE OPTIONS MOVING FORWARD ARE TO EITHER GO TO [facility] WITH IV ANTIBIOTICS OR DO A CULTURE IN THE WOUND FROM PODIATRY. THIS RN NOTIFED MD THAT PODIATRY HASN'T BEEN BY TO SEE PATIENT THIS AM, BUT MD IS GOING TO CALL PODIATRY TO DISCUSS PATIENT FEAR OF NEEDLES AND TO SEE IF THEY CAN COME DISCUSS THE PROCEDURE WITH THE PATIENT. BED IN LOWEST POSITION AND CALL LIGHT WITHIN REACH. WILL CONTINUE TO MONITOR AND PROVIDE CARE.
--- NOTE | 2021-03-13 09:55 | NUR ---
Received phone call yesterday evening from APS worker Angela regarding patient's care. She will be going out today to do a home inspection to ensure that pt. would be safe to return home when medically stable.
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
--- NOTE | 2021-03-13 12:51 | NUR ---
CRITICAL VALUE LAB CALLED AT 1248 TO NOTIFY THIS RN OF A CRITICAL HIGH VANCO LEVEL AT 23. THIS RN NOTIFED PHARMACY AND LPN MEDICAL ASSISTANT. HOLDING NEXT DOSE.
--- NOTE | 2021-03-13 18:48 | NUR ---
Patient is transfered to room 334 from PCU 3 after recovering from revascularization of right foot. Alert and oriented x3 , able to make needs known. C/o right leg pain 9/10 , buttock pain 8/10 , oxycodone 5 mg po was given and it was effective. Continuue on 5 L N/C , sp02 greater than 94% , patient mostly take off from her nose and put in the mouth. Vital signs are stable. Right foot dressing CDI. Tommorrow possible biopsy. Continue to monitor.
--- NOTE | 2021-03-14 04:29 | NUR ---
SUMMARY PT HAS BEEN NPO PER ORDER. PT PAIN TX PER EMAR W/ RELIEF. NO NEW ISSUES NOTED. PT HAS BEEN SLEEPING T/OUT SHIFT. CALL LIGHT IN REACH AND BED ALARM ON.
[2021-03-14 05:59] LABS: BASOPHILS ABSOLUTE AUTO 0.02 K/mm3 (0.00-0.23); BASOPHILS PERCENT AUTO 0 % (0-2); EOSINOPHILS ABSOLUTE AUTO 0.32 K/mm3 (0.00-0.68); EOSINOPHILS PERCENT AUTO 5 % (0-6); Hematocrit 37.5 % (33.0-51.0); Hemoglobin 10.8 g/dL (11.5-16.0); IMMATURE GRAN ABSOLUTE AUTO 0.01 K/mm3 (0.00-0.10); IMMATURE GRAN PERCENT AUTO 0 % (0-1); LYMPHOCYTES ABSOLUTE AUTO 1.94 K/mm3 (0.84-5.20); LYMPHOCYTES PERCENT AUTO 32 % (21-46); MONOCYTES ABSOLUTE AUTO 0.56 K/mm3 (0.16-1.47); MONOCYTES PERCENT AUTO 9 % (4-13); Mean Corpuscular HGB 25.4 pg (26.0-34.0); Mean Corpuscular HGB Conc 28.8 g/dL (31.5-36.5); Mean Corpuscular Volume 88 fL (80-100); Mean Platelet Volume 11.8 fL (9.1-12.4); NEUTROPHILS ABSOLUTE AUTO 3.26 K/mm3 (1.96-9.15); NEUTROPHILS PERCENT AUTO 53 % (41-73); Platelet Count 201 K/mm3 (150-400); RDW Coefficient Variation 15.6 % (11.7-14.2); RDW Standard Deviation 49.4 fL (35.1-46.3); Red Blood Cell Count 4.26 M/mm3 (3.80-5.20); White Blood Cell Count 6.11 K/mm3 (4.00-11.30)
[2021-03-14 06:23] LABS: Anion Gap 4 mmol/L (6-16); Blood Urea Nitrogen 32 mg/dL (8-24); Bun/Creatinine Ratio 32.1 (12.0-20.0); CO2, Blood 32 mmol/L (21-32); Calcium, Blood 9.1 mg/dL (8.5-10.1); Chloride, Blood 107 mmol/L (98-108); Glomerular Filtration Rate 55 (60-); Glucose, Blood 124 mg/dL (70-99); Potassium, Blood 3.9 mmol/L (3.5-5.5); Sodium, Blood 143 mmol/L (136-145); Vancomycin, Random 16.6 ug/mL
--- NOTE | 2021-03-14 11:15 | NUR ---
PT RECENTLY TO DAYSURGERY. PT REPORTS BOTTOM PAINFULL, PT WAS REPOSITIONED. PT NOW REPORTING "MY VAGINA FEELS LIKE IT IS HURTING BADLY". FEMALE RN ASSESSED AREA, REPORTED THAT APPEARED WNL. PT REPOSITOINED AGAIN AND REPORTS PAIN FEELS MUCH BETTER. History, Chart, Medications and Allergies reviewed before start of procedure. Lungs clear T/O to Auscultation, DISCUSSED PT'S O2 STATUS WITH STAFF. Patient confirms NPO status and agrees with scheduled surgery. Pre-Op teaching done. Pt verbalizes understanding.
--- NOTE | 2021-03-14 12:14 | NUR ---
03/14/21 Bere4 Cassia Guzman PATIENT IS ON SCHEDULED ANTIBIOTICS.
--- NOTE | 2021-03-14 13:49 | NUR ---
PATIENT CAME BACK FROM PACU TODAY 03/14/21 AT 1315. POD 0 I&D R FOOT WITH BIOPSY PATIENT CAME BACK ALERT AND ORIENTED X4. VS ARE WNL AND IS ON 6L OXYGEN NC WHICH IS BASELINE FOR HER AT HOME. HER RIGHT FOOT HAS ERIC WRAP AND A HEEL PROTECTOR ON THAT IS C/D/I. SHE IS ABLE TO WIGGLE FINGERS AND TOES. PATIENT HAS A HX OF NEUROPATHY SO SHE HAS NO NEW NUMBNESS IN HER FEET. PATIENT DENIES PAIN IN HER FEET. THERE IS ALSO ANOTHER HEEL PROTECTENT ON HER OTHER HEEL THAT IS C/D/I. CALL LIGHT WITHIN REACH.
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
--- NOTE | 2021-03-14 17:59 | NUR ---
SHIFT SUMMARY: POD 0 I&D OF RIGHT FOOT WITH BIOPSY NO SIGNIFICANT CHANGES SINCE ARRIVAL TO UNIT EARLIER TODAY. VS ARE WNL AND IS ON 6L OXYGEN NC. PATIENT'S PAIN IS MANAGED WITH PO PAIN MED. RIGHT FOOT HAS ERIC WRAP AND FOOT BOOTY THAT IS C/D/I. SHE DENIES ANY NEW NUMBNESS AND IS ABLE TO WIGGLE FINGERS AND TOES. SHE IS TOLERATING PO INTAKE. SHE IS INCONTINENT AND IS VOIDING. CALLS APPROPRIATELY. CALL LIGHT WITHIN REACH. THE PLAN IS TO CONTINUE ABX WITH FLUIDS AND TO WORK WITH PT/OT TOMORROW.
[2021-03-15 10:36] LABS: BASOPHILS ABSOLUTE AUTO 0.01 K/mm3 (0.00-0.23); BASOPHILS PERCENT AUTO 0 % (0-2); EOSINOPHILS ABSOLUTE AUTO 0.34 K/mm3 (0.00-0.68); EOSINOPHILS PERCENT AUTO 5 % (0-6); Hematocrit 34.7 % (33.0-51.0); Hemoglobin 10.2 g/dL (11.5-16.0); IMMATURE GRAN ABSOLUTE AUTO 0.01 K/mm3 (0.00-0.10); IMMATURE GRAN PERCENT AUTO 0 % (0-1); LYMPHOCYTES ABSOLUTE AUTO 1.97 K/mm3 (0.84-5.20); LYMPHOCYTES PERCENT AUTO 31 % (21-46); MONOCYTES ABSOLUTE AUTO 0.42 K/mm3 (0.16-1.47); MONOCYTES PERCENT AUTO 7 % (4-13); Mean Corpuscular HGB 25.5 pg (26.0-34.0); Mean Corpuscular HGB Conc 29.4 g/dL (31.5-36.5); Mean Corpuscular Volume 87 fL (80-100); Mean Platelet Volume 11.7 fL (9.1-12.4); NEUTROPHILS ABSOLUTE AUTO 3.71 K/mm3 (1.96-9.15); NEUTROPHILS PERCENT AUTO 57 % (41-73); Platelet Count 202 K/mm3 (150-400); RDW Coefficient Variation 15.3 % (11.7-14.2); RDW Standard Deviation 48.9 fL (35.1-46.3); White Blood Cell Count 6.46 K/mm3 (4.00-11.30)
[2021-03-15 11:02] LABS: Anion Gap 3 mmol/L (6-16); Blood Urea Nitrogen 35 mg/dL (8-24); CO2, Blood 33 mmol/L (21-32); Calcium, Blood 8.9 mg/dL (8.5-10.1); Chloride, Blood 106 mmol/L (98-108); Creatinine, Blood 1.03 mg/dL (0.40-1.00); Glomerular Filtration Rate 53 (60-); Glucose, Blood 151 mg/dL (70-99); Potassium, Blood 3.9 mmol/L (3.5-5.5); Sodium, Blood 142 mmol/L (136-145)
--- NOTE | 2021-03-15 18:22 | NUR ---
Alert and oriented x3 , able to make needs known. Continue on ABO vancomyic therapy , no adverse effects noted. vital signs are stable. Oxycodone and Tylenol were given for pain managemnt ,it was effective. Continue on 4 L n/c , sp02 at 93 % and greater. Right dressing CDI. call appropriately and call light within reach. No changes in LOC, Continue to monitor.
--- NOTE | 2021-03-16 02:45 | NUR ---
REAL ESTATE RECRUITER SUMMARY PATIENT HAD A FAIR SHIFT. HER VITALS WAS STABLE. SHE HAD HER PAIN CONTROLLED WITH PRN PAIN MED, SEE CHART. OTHERWISE NO ADVERSE EVENT OVERNIGHT. WILL CONTINUE TO MONITOR HER.
[2021-03-16 05:28] LABS: BASOPHILS ABSOLUTE AUTO 0.02 K/mm3 (0.00-0.23); BASOPHILS PERCENT AUTO 0 % (0-2); EOSINOPHILS ABSOLUTE AUTO 0.38 K/mm3 (0.00-0.68); EOSINOPHILS PERCENT AUTO 6 % (0-6); Hematocrit 35.6 % (33.0-51.0); Hemoglobin 10.3 g/dL (11.5-16.0); IMMATURE GRAN ABSOLUTE AUTO 0.02 K/mm3 (0.00-0.10); IMMATURE GRAN PERCENT AUTO 0 % (0-1); LYMPHOCYTES ABSOLUTE AUTO 1.79 K/mm3 (0.84-5.20); LYMPHOCYTES PERCENT AUTO 30 % (21-46); MONOCYTES ABSOLUTE AUTO 0.39 K/mm3 (0.16-1.47); MONOCYTES PERCENT AUTO 7 % (4-13); Mean Corpuscular HGB 25.1 pg (26.0-34.0); Mean Corpuscular HGB Conc 28.9 g/dL (31.5-36.5); Mean Corpuscular Volume 87 fL (80-100); Mean Platelet Volume 12.1 fL (9.1-12.4); NEUTROPHILS PERCENT AUTO 57 % (41-73); Platelet Count 190 K/mm3 (150-400); RDW Coefficient Variation 15.5 % (11.7-14.2); RDW Standard Deviation 49.2 fL (35.1-46.3)
[2021-03-16 06:12] LABS: Bun/Creatinine Ratio 32.4 (12.0-20.0); Creatinine, Blood 1.02 mg/dL (0.40-1.00); Potassium, Blood 3.9 mmol/L (3.5-5.5)
[2021-03-16 12:47] LABS: Vancomycin, Random 20.1 ug/mL
--- NOTE | 2021-03-16 18:23 | NUR ---
Alert and oriented x 3 ,able to make needs known. c/o generalized pain ,9/10 oxycodone 5 mg po was given and it was effective. Tums 1000 mg was given for indegestion . Right foot dressing CDI . Metormin was given for diabetes. Continue on ABO therapy , no adverse effects noted . call appropriately and call light within reach . vital signs are stable. Continue to monitor.
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
[2021-03-17 10:24] LABS: BASOPHILS ABSOLUTE AUTO 0.02 K/mm3 (0.00-0.23); BASOPHILS PERCENT AUTO 0 % (0-2); EOSINOPHILS ABSOLUTE AUTO 0.45 K/mm3 (0.00-0.68); EOSINOPHILS PERCENT AUTO 6 % (0-6); Hematocrit 37.3 % (33.0-51.0); IMMATURE GRAN ABSOLUTE AUTO 0.02 K/mm3 (0.00-0.10); IMMATURE GRAN PERCENT AUTO 0 % (0-1); LYMPHOCYTES ABSOLUTE AUTO 1.84 K/mm3 (0.84-5.20); LYMPHOCYTES PERCENT AUTO 26 % (21-46); MONOCYTES PERCENT AUTO 7 % (4-13); Mean Corpuscular HGB 25.6 pg (26.0-34.0); Mean Corpuscular HGB Conc 29.5 g/dL (31.5-36.5); Mean Corpuscular Volume 87 fL (80-100); Mean Platelet Volume 12.7 fL (9.1-12.4); NEUTROPHILS ABSOLUTE AUTO 4.16 K/mm3 (1.96-9.15); NEUTROPHILS PERCENT AUTO 60 % (41-73); Platelet Count 208 K/mm3 (150-400); RDW Coefficient Variation 15.7 % (11.7-14.2); RDW Standard Deviation 49.8 fL (35.1-46.3); Red Blood Cell Count 4.29 M/mm3 (3.80-5.20); White Blood Cell Count 6.99 K/mm3 (4.00-11.30)
[2021-03-17 10:53] LABS: Bun/Creatinine Ratio 31.7 (12.0-20.0); Creatinine, Blood 1.01 mg/dL (0.40-1.00); Potassium, Blood 3.8 mmol/L (3.5-5.5)
--- NOTE | 2021-03-17 17:39 | NUR ---
I have yet to receive a call back from patient's major case detective at [facility]. I have been working with APS major case detective Angela who has completed a home inspection and interviewed family members. All in agreement that pt. is not safe to return home. Pt. has been alert and oriented, able to make her own decisions. Unfortunately, she is not understanding the extent of her condition and the risks with returning home. Contacted [employer] network manager Jasmina Peter this afternoon. I have requested the details of what patient qualifies for. When reviewing notes, Jasmina states that final process not completed by major case detective. Requested that this is completed matt. Also advised her that I have been trying to reach major case detective since 03/05/21. Jasmina assured me that the process will be completed by tomorrow morning and that they will send a list of long-term care qualifications including most appropriate level of foster care. Medicaid no longer covers the cost of part time receptionist home caregiver assistance. Pt. will need to understand that part time receptionist caregiver support will not be an option. Her son is unwilling and unable to continue to provide care. Plan to meet with Tiff again tomorrow morning to discuss options and risk associated with returning home without adequate support. [employer] and APS are in agreement that we can encourage patient, but she is not to a point where guardianship is a possibility.
--- NOTE | 2021-03-17 18:41 | NUR ---
Alert and oriented x3 , able to make needs known. c/o generalized pain , oxycodone and tylenol were given for pain management and it was effective. Right foot dressing change was done. Continue on ABO IV therapy for right infetious foot. Repositioning every two hours. vital signs are stable. Call appropriately and call light within reach. Continue to monitor.
--- NOTE | 2021-03-18 04:59 | NUR ---
PT continues on antibiotics for rt foot gangrene post op rt le revasculation. She has pain with touch to rt le . @ max for bed mobility to rool side to side for attends change. Incontinent of large amts urine. Flat affect, PT declines toileting or bedpan use. Cooperative with meds. 4 l oxygen for COPD, uses in mouth & frequently removes. Medicated for rt le pain with tylenol at HS Ultram this AM.
[2021-03-18 08:15] LABS: BASOPHILS ABSOLUTE AUTO 0.03 K/mm3 (0.00-0.23); BASOPHILS PERCENT AUTO 0 % (0-2); EOSINOPHILS ABSOLUTE AUTO 0.41 K/mm3 (0.00-0.68); EOSINOPHILS PERCENT AUTO 5 % (0-6); Hematocrit 36.4 % (33.0-51.0); Hemoglobin 10.7 g/dL (11.5-16.0); IMMATURE GRAN ABSOLUTE AUTO 0.03 K/mm3 (0.00-0.10); IMMATURE GRAN PERCENT AUTO 0 % (0-1); LYMPHOCYTES ABSOLUTE AUTO 2.74 K/mm3 (0.84-5.20); LYMPHOCYTES PERCENT AUTO 35 % (21-46); MONOCYTES ABSOLUTE AUTO 0.49 K/mm3 (0.16-1.47); MONOCYTES PERCENT AUTO 6 % (4-13); Mean Corpuscular HGB 25.7 pg (26.0-34.0); Mean Corpuscular HGB Conc 29.4 g/dL (31.5-36.5); Mean Corpuscular Volume 88 fL (80-100); Mean Platelet Volume 12.3 fL (9.1-12.4); NEUTROPHILS PERCENT AUTO 53 % (41-73); Platelet Count 203 K/mm3 (150-400); RDW Coefficient Variation 15.8 % (11.7-14.2); RDW Standard Deviation 50.7 fL (35.1-46.3); Red Blood Cell Count 4.16 M/mm3 (3.80-5.20)
[2021-03-18 08:32] LABS: Bun/Creatinine Ratio 36.7 (12.0-20.0); Calcium, Blood 8.9 mg/dL (8.5-10.1); Creatinine, Blood 0.95 mg/dL (0.40-1.00); Potassium, Blood 3.8 mmol/L (3.5-5.5)
--- NOTE | 2021-03-18 11:41 | NUR ---
Joint visit with this RN and Wilver D/C Brooch And Bracelet Maker Lillie. Lillie discusses D/C plan potential with Pt including the need for SNF and in home caregivers. Pt is in agreement. This RN remained behind and continued supportive visit. Re-enforced the importance of working with therapy. Offered therapeutic listening and answered questions. Ended visit to allow Pt to rest. Palliative Care will remain available.
--- NOTE | 2021-03-18 11:52 | NUR ---
Update 03/18/21: Positive conversation with pt. this am. Discussed living situation and need for time clock repairer care. Advised pt. of the risks of not receiving the appropriate level of care to meet her needs. Answered questions. Pt. again declines long-term care facility, but when presented with alternative of SNF with goal of returning home with daily caregiver support, pt. is now agreeable. She stated her understanding of her need to make progress with PT at inpatient facility. Palliative care also present for the end of the conversation and offered reassurance that pt. was making a good decision. Requesting that [facility] clinical manger consider patient for SNF. Encouraged her to ask questions and to possibly even meet patient here at the hospital if needed.
--- NOTE | 2021-03-18 14:10 | NUR ---
Discussed CHO serving size recommendation (3-4 15 servings per meal) and discussed what foods are CHOs. Identified typically CHO in pts diet and discussed what a portion size of them looks like. Encouraged pt to choose whole grains of processed grains to increase nutrient content of diet and avoid blood sugar spikes. Encouraged pt to pair CHOs with protein and/or fat and meals and snacks.
--- NOTE | 2021-03-18 14:20 | NUR ---
Per clinical regional training manager Federico Lo at [facility], they are willing to accept pt. to SNF. They are requesting that caregiver assistance be secured while pt. is at facility. Plan to discuss further with [employer] insurance case manager Elijah Camacho. Requested [facility] prior auth through [facility]. Hoping to receive prior auth later this evening. Requested that the process is started as soon as possible. Provided Tiff with update. She is concerned about issues with her son wanting her home and making statements about her not returning. I advised her that she owns the home and [employer]/APS can assist with this. Providing update to [employer] worker Angela and APS worker Elijah Camacho this afternoon. I will request that they assist with identifying an appropriate caregiver and with concerns regarding son. Anticipate needs at time of discharge to include: STAT COVID test, [facility] arranged [facility], discharge orders faxed to facility, discharge packet, and hospital F/U within 5-7 days scheduled by [facility] team with SNF staff post discharge.
--- NOTE | 2021-03-18 19:18 | NUR ---
Alert and oriented x3, continue on iv ABO therapy for right foot infection,no adverse effects noted. One person assist with ADls. Right foot dressing CDI. Vital signs are stable. Oxycodone and Tylenol were given for pain management , it was effective. Worked with PT/OT for strength and endurance, it was tolerated. Continue to monitor.
--- NOTE | 2021-03-19 07:34 | NUR ---
PATIENT SLEPT MOST OF THE NIGHT AFTER HS MEDS WERE GIVEN. INITIALLY, SEVERINO CALLED OUT AND SAID SHE WAS "INSISTING SHE GET HER R.HAND IV OUT NOW". (FORTUNATELY, SHE HAD A 20 GUAGE IN HER L. FOREARM) SEVERINO'S ABD AND EPIGASTRIC AREA WERE PAINFUL YEST. EVENING, THIS WAS SOLVED WITH 2 TUMS AND 4MG PO ZOFRAN. NO FURTHER COMPLAINTS OVERNIGHT
[2021-03-19 15:47] LABS: Influenza A, PCR NEGATIVE (NEGATIVE); Influenza B, PCR NEGATIVE (NEGATIVE); Resp Syncytial Virus, PCR NEGATIVE (NEGATIVE); SARS-Cov-2 (COVID-19) PCR, MMC NEGATIVE (NEGATIVE)
--- NOTE | 2021-03-19 15:49 | NUR ---
Update 03/19/2021: Recieved prior auth this afternoon for pt. from [facility] for [facility] inpatient rehab. Pt. has gone back and forth a bit over wanting to go to SNF. She wants to return home, but she understands that is not safe at this time. Pt. agreeable this afternoon to going. She will just require reassurance when she begins to have anxiety about going. Transportation scheduled for 6 pm. All D/C orders and updated chart notes faxed to [facility]. STAT COVID ordered and pending. Results will be faxed to facility. D/C packet delivered to room. Pt. will need oxygen for transport. Contacted [employer] and provided update that pt. is going [facility]. Requested case workers assistance in finishing the process for long-term care and caregiver assistance. Spoke with account group supervisor Jasmina Peter. I advised her that patient's senior case manager still has not contacted me back after multiple calls. She will be addressing this and assures me that they will continue to make progress in asssisting pt. Requested that they keep in touch with Federico at [facility] to ensure a smooth transition. Also requested assistance with helping patient to sort out issues with her son and her home. Plan to also notify APS. Case will remain open.
--- NOTE | 2021-03-19 17:02 | NUR ---
Alert and oriented x3 , able to verbalize needs.C/o right foot pain 9/10 , oxycodone 5 mg po was given and it was effective. Right foot dressing change was done and the site is CDI. Continue on ABO IV therapy , no advserse effects noted. vital signs are stable. Continue on metformin for diabetes . Repositioning done q2 hours and right foot elevated on a pillow. Call appropriately and call light within reach.Continue to monitor.
[2021-03-19] MEDS ORDERED: Norco 5-325 Ta1 EACH PO (18:24)
[2021-03-19] MEDS ORDERED: CEFTRIAXONE2 G1 IV (18:33)
[2021-03-19] MEDS ORDERED: DULO30 PO (18:34)
[2021-03-19] MEDS ORDERED: ROXICODONE5 MG PO (18:36)
[2021-03-19] MEDS ORDERED: POTA10T PO (18:37)
== END 2021-03-19 19:40 | DRG 271 ==
LOC: SURS 11:21 → MEDS 11:26 → PCU 11:26 → MEDS 11:27 → PCU 03-11 17:32 → MEDS 03-13 15:17
PROVIDERS: Family Medicine; Internal Medicine Endocrinology, Diabetes & Metabolism; Pharmacist; Radiology Diagnostic Radiology; Student in an Organized Health Care Education/Training Program; ADMIT Family Medicine
PROC: 04CM3ZZ Extirpation of Matter from Right Popliteal Artery, Percutaneous Approach (ICD-10-PCS; principal; 2021-03-12)
PROC: 047K3Z1 Dilation of Right Femoral Artery using Drug-Coated Balloon, Percutaneous Approach (ICD-10-PCS; 2021-03-12)
PROC: 047M3Z1 Dilation of Right Popliteal Artery using Drug-Coated Balloon, Percutaneous Approach (ICD-10-PCS; 2021-03-12)
PROC: 04CK3ZZ Extirpation of Matter from Right Femoral Artery, Percutaneous Approach (ICD-10-PCS; 2021-03-12)
PROC: 0QBN0ZZ Excision of Right Metatarsal, Open Approach (ICD-10-PCS; 2021-03-14)
PROC: 0QBN0ZX Excision of Right Metatarsal, Open Approach, Diagnostic (ICD-10-PCS; 2021-03-14)
DX: E11.52 Type 2 diabetes mellitus with diabetic peripheral angiopathy with gangrene (principal); M86.8X7 Other osteomyelitis, ankle and foot; I96 Gangrene, not elsewhere classified; Z20.822 Contact with and (suspected) exposure to COVID-19; K59.00 Constipation, unspecified; N28.9 Disorder of kidney and ureter, unspecified; J44.9 Chronic obstructive pulmonary disease, unspecified; G89.29 Other chronic pain; K21.9 Gastro-esophageal reflux disease without esophagitis; E11.65 Type 2 diabetes mellitus with hyperglycemia; G47.33 Obstructive sleep apnea (adult) (pediatric); E11.621 Type 2 diabetes mellitus with foot ulcer; E78.5 Hyperlipidemia, unspecified; E11.69 Type 2 diabetes mellitus with other specified complication; E87.6 Hypokalemia; F41.8 Other specified anxiety disorders; F17.210 Nicotine dependence, cigarettes, uncomplicated; Z86.73 Personal history of transient ischemic attack (TIA), and cerebral infarction without residual deficits; Z99.81 Dependence on supplemental oxygen; Z98.51 Tubal ligation status; Z98.891 History of uterine scar from previous surgery; Z88.8 Allergy status to other drugs, medicaments and biological substances; Z91.012 Allergy to eggs; Z91.018 Allergy to other foods; Z79.4 Long term (current) use of insulin; Z79.899 Other long term (current) drug therapy
CPT/HCPCS: 0241U; 36415; 37225; 73630; 73720; 75625; 75716; 75774; 76937; 80048; 80053; 80069; 80202; 82947; 83036; 85025; 85651; 87040; 87071; 87075; 87077; 87186; 87205; 88305; 88311; 93922; 94640; 94760; 94761; 94762; 97110; 97162; 97530; 99152; 99153; A9270; A9579; C1714; C1760; C1769; C1887; C1894; C2623; J0696; J1100; J1200; J1644; J1650; J1720; J1815; J1885; J2250; J2405; J2704; J3010; J3370; J7030; J7040; J7050; J7120; Q9967; U0004

== ENCOUNTER 2021-10-17 11:34 | Emergency (ER) | payer OTHER ==
[~2021-10-17] VITALS: Ht 157.5 cm; Wt 81.7 kg
[~2021-10-17 11:34] MED LIST changes: +ANTIFUNGAL POWD71 GM TOP; +BUME1 PO; +CEFTRIAXONE2 G1 IV; +DULO30 PO; +GLIP5 PO; +IBUP800 PO; +MIRALAX17 GM PO; +Norco 5-325 Ta1 EACH PO; +POTA10T PO; +Pyridium100 MG PO; +ROXICODONE5 MG PO
[2021-10-17 14:09] LABS: Source, Urine Straight Cath
[2021-10-17 14:29] LABS: Appearance, Urine Turbid (Clear); Bilirubin, Urine Neg (Neg); Blood, Urine 5+ (Neg); Glucose Qualitative, Urine Neg (Neg); Ketones, Urine Neg (Neg); Leukocyte Esterase, Urine 3+ (Neg); Nitrite, Urine Pos (Neg); Protein, Urine 3+ (Neg); Urobilinogen, Urine NORM (Normal)
[2021-10-17 14:33] LABS: BASOPHILS ABSOLUTE AUTO 0.07 K/mm3 (0.00-0.23); BASOPHILS PERCENT AUTO 1 % (0-2); EOSINOPHILS ABSOLUTE AUTO 0.12 K/mm3 (0.00-0.68); EOSINOPHILS PERCENT AUTO 1 % (0-6); Hematocrit 42.4 % (33.0-51.0); Hemoglobin 13.5 g/dL (11.5-16.0); IMMATURE GRAN ABSOLUTE AUTO 0.17 K/mm3 (0.00-0.10); IMMATURE GRAN PERCENT AUTO 2 % (0-1); LYMPHOCYTES ABSOLUTE AUTO 2.77 K/mm3 (0.84-5.20); LYMPHOCYTES PERCENT AUTO 29 % (21-46); MONOCYTES ABSOLUTE AUTO 0.71 K/mm3 (0.16-1.47); MONOCYTES PERCENT AUTO 8 % (4-13); Mean Corpuscular HGB 27.8 pg (26.0-34.0); Mean Corpuscular HGB Conc 31.8 g/dL (31.5-36.5); Mean Corpuscular Volume 87 fL (80-100); Mean Platelet Volume 11.7 fL (9.1-12.4); NEUTROPHILS ABSOLUTE AUTO 5.68 K/mm3 (1.96-9.15); NEUTROPHILS PERCENT AUTO 60 % (41-73); Platelet Count 233 K/mm3 (150-400); RDW Coefficient Variation 16.7 % (11.7-14.2); RDW Standard Deviation 53.5 fL (35.1-46.3); Red Blood Cell Count 4.86 M/mm3 (3.80-5.20); White Blood Cell Count 9.52 K/mm3 (4.00-11.30)
[2021-10-17 14:50] LABS: Magnesium, Blood 2.8 mg/dL (1.6-2.4)
[2021-10-17 14:53] LABS: Color, Urine Pale Yellow (P-Yellow)
[2021-10-17 14:54] LABS: Influenza A, PCR NEGATIVE (NEGATIVE); Influenza B, PCR NEGATIVE (NEGATIVE); Resp Syncytial Virus, PCR NEGATIVE (NEGATIVE); SARS-Cov-2 (COVID-19) PCR, MMC NEGATIVE (NEGATIVE)
[2021-10-17 14:55] LABS: Bacteria Many /hpf; Red Blood Cells, Urine TNTC /hpf (0-2); Squamous Epithelial Cells Few /hpf (Few); Transitional Epithelial Cells Few /hpf (0-Rare); White Blood Cells, Urine TNTC /hpf (0-5)
[2021-10-17 14:58] LABS: Alanine Aminotransfer (ALT/SGP <6 U/L (12-78); Albumin, Blood 3.4 g/dL (3.4-5.0); Albumin/Globulin Ratio 0.7 (0.8-1.8); Alk Phos 104 U/L (50-136); Anion Gap 14 mmol/L (6-16); Aspartate Aminotrans (AST/SGOT <3 U/L (12-37); Bilirubin, Total 0.1 mg/dL (0.1-1.0); Blood Urea Nitrogen 80 mg/dL (8-24); Bun/Creatinine Ratio 40.4 (12.0-20.0); CO2, Blood 10 mmol/L (21-32); Calcium, Blood 9.8 mg/dL (8.5-10.1); Chloride, Blood 118 mmol/L (98-108); Creatinine, Blood 1.98 mg/dL (0.40-1.00); Globulin, Blood 4.6 g/dL (2.2-4.0); Glomerular Filtration Rate 27 (60-); Glucose, Blood 127 mg/dL (70-99); Sodium, Blood 142 mmol/L (136-145)
[2021-10-17] MEDS ORDERED: HYDR1TAB94 PO (17:39)
[2021-10-17] MEDS ORDERED: CEFD300 PO (17:39)
== END 2021-10-17 19:33 | disposition home or self-care (01) ==
LOC: ER 11:34
PROVIDERS: Student in an Organized Health Care Education/Training Program
DX: M25.551 Pain in right hip (principal); R30.0 Dysuria; I10 Essential (primary) hypertension; J44.9 Chronic obstructive pulmonary disease, unspecified; E11.9 Type 2 diabetes mellitus without complications; F17.210 Nicotine dependence, cigarettes, uncomplicated; Z91.012 Allergy to eggs; Z91.018 Allergy to other foods; Z79.899 Other long term (current) drug therapy
CPT/HCPCS: 0241U; 36415; 51701; 73502; 80053; 81001; 82947; 83735; 84145; 85025; 87077; 87086; 87186; 93005; 93010; A9270; J0696; J1885

== ENCOUNTER 2021-10-20 15:05 | Inpatient (IN) | payer OTHER ==
[~2021-10-20] VITALS: Ht 170.2 cm; Wt 71.0 kg
[~2021-10-20 15:05] MED LIST changes: +CEFD300 PO; +HYDR1TAB94 PO
[2021-10-20 16:10] LABS: Source, Urine Straight Cath
[2021-10-20 16:14] LABS: Appearance, Urine Cloudy (Clear); Bilirubin, Urine Neg (Neg); Blood, Urine 5+ (Neg); Glucose Qualitative, Urine Neg (Neg); Ketones, Urine Neg (Neg); Leukocyte Esterase, Urine 3+ (Neg); Nitrite, Urine Neg (Neg); Protein, Urine 3+ (Neg); Urobilinogen, Urine NORM (Normal)
[2021-10-20 16:28] LABS: BASOPHILS ABSOLUTE AUTO 0.04 K/mm3 (0.00-0.23); BASOPHILS PERCENT AUTO 0 % (0-2); EOSINOPHILS ABSOLUTE AUTO 0.07 K/mm3 (0.00-0.68); EOSINOPHILS PERCENT AUTO 1 % (0-6); Hematocrit 39.5 % (33.0-51.0); Hemoglobin 13.1 g/dL (11.5-16.0); IMMATURE GRAN ABSOLUTE AUTO 0.08 K/mm3 (0.00-0.10); IMMATURE GRAN PERCENT AUTO 1 % (0-1); LYMPHOCYTES ABSOLUTE AUTO 2.47 K/mm3 (0.84-5.20); LYMPHOCYTES PERCENT AUTO 20 % (21-46); MONOCYTES ABSOLUTE AUTO 0.83 K/mm3 (0.16-1.47); MONOCYTES PERCENT AUTO 7 % (4-13); Mean Corpuscular HGB 28.2 pg (26.0-34.0); Mean Corpuscular HGB Conc 33.2 g/dL (31.5-36.5); Mean Corpuscular Volume 85 fL (80-100); Mean Platelet Volume 12.4 fL (9.1-12.4); NEUTROPHILS ABSOLUTE AUTO 8.65 K/mm3 (1.96-9.15); NEUTROPHILS PERCENT AUTO 71 % (41-73); Platelet Count 303 K/mm3 (150-400); RDW Coefficient Variation 17.7 % (11.7-14.2); RDW Standard Deviation 53.9 fL (35.1-46.3); Red Blood Cell Count 4.64 M/mm3 (3.80-5.20); White Blood Cell Count 12.14 K/mm3 (4.00-11.30)
[2021-10-20 16:33] LABS: Base Excess Venous -21.1 mmol/L; Bicarbonate Venous 10.2 mmol/L (24.0-30.0); PCO2 Venous 31.6 mmHg (38-42); PO2 Venous 62.2 mmHg (38-42); pH Blood Venous 7.07 (7.34-7.37)
[2021-10-20 16:41] LABS: Color, Urine Pale Yellow (P-Yellow)
[2021-10-20 16:47] LABS: Bacteria Many /hpf; Red Blood Cells, Urine TNTC /hpf (0-2); Squamous Epithelial Cells Few /hpf (Few); Transitional Epithelial Cells Few /hpf (0-Rare); White Blood Cells, Urine TNTC /hpf (0-5)
[2021-10-20 16:59] LABS: Albumin, Blood 3.3 g/dL (3.4-5.0); Albumin/Globulin Ratio 0.6 (0.8-1.8); Bilirubin, Total 0.3 mg/dL (0.1-1.0); Creatinine, Blood 2.13 mg/dL (0.40-1.00); Globulin, Blood 5.2 g/dL (2.2-4.0); Potassium, Blood 3.7 mmol/L (3.5-5.5); Total Protein, Blood 8.5 g/dL (6.4-8.2)
[2021-10-20 21:01] LABS: Bun/Creatinine Ratio 60.6 (12.0-20.0); Calcium, Blood 8.5 mg/dL (8.5-10.1); Creatinine, Blood 1.93 mg/dL (0.40-1.00); Potassium, Blood 3.2 mmol/L (3.5-5.5)
--- NOTE | 2021-10-20 22:39 | NUR ---
ADMIT PT ADMITTED FOR AMS, WEAKNESS R/T THERESE FROM UTI. RECIEVED REPORT FROM ER NURSE MIGUELINA. PT ARRIVED ROUGHLY 2145 TO RM 330. AOX1-SELF ONLY. UNABLE TO FULLY ASSESS PT TO LETHARGIC & FALLS ASLEEP BEFORE ANSWERING ANY OTHER QUESTIONS. WILL OPEN EYES TO VERBAL OR PAINFUL STIMULI HOWEVER ONLY MOANS OR MUMMBLES & UNABLE TO MAKE WORDS EXCEPT "OW". PT CANT FOLLOW DIRECTIONS. VSS. WILL MONITOR.
[2021-10-21 05:47] LABS: BASOPHILS ABSOLUTE AUTO 0.04 K/mm3 (0.00-0.23); BASOPHILS PERCENT AUTO 0 % (0-2); EOSINOPHILS ABSOLUTE AUTO 0.08 K/mm3 (0.00-0.68); EOSINOPHILS PERCENT AUTO 1 % (0-6); Hematocrit 34.2 % (33.0-51.0); Hemoglobin 11.3 g/dL (11.5-16.0); IMMATURE GRAN ABSOLUTE AUTO 0.05 K/mm3 (0.00-0.10); IMMATURE GRAN PERCENT AUTO 1 % (0-1); LYMPHOCYTES ABSOLUTE AUTO 1.64 K/mm3 (0.84-5.20); LYMPHOCYTES PERCENT AUTO 18 % (21-46); MONOCYTES PERCENT AUTO 9 % (4-13); Mean Corpuscular HGB 27.8 pg (26.0-34.0); Mean Corpuscular Volume 84 fL (80-100); Mean Platelet Volume 12.2 fL (9.1-12.4); NEUTROPHILS ABSOLUTE AUTO 6.39 K/mm3 (1.96-9.15); NEUTROPHILS PERCENT AUTO 71 % (41-73); Platelet Count 234 K/mm3 (150-400); RDW Coefficient Variation 16.9 % (11.7-14.2); Red Blood Cell Count 4.06 M/mm3 (3.80-5.20)
[2021-10-21 06:21] LABS: Albumin, Blood 2.9 g/dL (3.4-5.0); Anion Gap 11 mmol/L (6-16); Blood Urea Nitrogen 106 mg/dL (8-24); Bun/Creatinine Ratio 63.5 (12.0-20.0); CO2, Blood 13 mmol/L (21-32); Calcium, Blood 8.5 mg/dL (8.5-10.1); Chloride, Blood 128 mmol/L (98-108); Creatinine, Blood 1.67 mg/dL (0.40-1.00); Glomerular Filtration Rate 33 (60-); Glucose, Blood 188 mg/dL (70-99); Magnesium, Blood 2.9 mg/dL (1.6-2.4); Phosphorus, Blood 2.7 mg/dL (2.5-4.9); Potassium, Blood 2.8 mmol/L (3.5-5.5); Sodium, Blood 152 mmol/L (136-145)
--- NOTE | 2021-10-21 06:45 | NUR ---
SHIFT SUMMARY OPENS EYES TO VERBAL OR PAINFUL STIMULI. AOX1-ABLE TO STATE BIRTHDATE, THEN FELL ASLEEP & TOO LETHARGIC TO ANSWER REST OF ORIENTATION QUESTIONS. CAN FOLLOW MINIMAL DIRECTIONS, STUCK OUT TONGUE WHEN ASKED. VSS. TELE NSR 96. MOUTH IS VERY DRY & HAS SORES, PLAQUE T/O, PERFORMED SUCTION PO CARE. INCONT OF URINE, HAS VERY FOUL SMELLING URINE, CHANGE PRN. HS CBG @124. STAGE 2 PRESSURE SORE COCCYX, CLEANSED & FLOATED HIPS. PT WORE CPAP T/O NIGHT, CONT PULSE OX >90% ON RA. CALL LIGHT & BED ALARM IN PLACE.
[2021-10-21 08:21] LABS: Source, Urine Foley catheter
[2021-10-21 08:25] LABS: Salicylate 9.4 mg/dL (2.8-20.0)
[2021-10-21 08:26] LABS: Bilirubin, Urine Neg (Neg); Blood, Urine 5+ (Neg); Glucose Qualitative, Urine Neg (Neg); Ketones, Urine 1+ (Neg); Leukocyte Esterase, Urine 3+ (Neg); Nitrite, Urine Pos (Neg); Protein, Urine 2+ (Neg); Urobilinogen, Urine NORM (Normal)
[2021-10-21 08:26] LABS: Acetaminophen, Random <2.0 ug/mL (10.0-30.0)
[2021-10-21 08:37] LABS: Appearance, Urine Hazy (Clear); Color, Urine Yellow (P-Yellow)
[2021-10-21 08:37] LABS: U Amphetamine Screen Not Detected; U Barbituate Screen Not Detected; U Benzodiazapine Screen Not Detected; U Buprenorphine Screen Not Detected; U Cannabinoids Screen Not Detected; U Cocaine Screen Not Detected; U Methadone Screen Not Detected; U Methamphetamine Screen Not Detected; U Opiates Screen DETECTED; U Oxycodone Screen Not Detected; U Phencyclidine Screen Not Detected; U Propoxyphene Screen Not Detected
[2021-10-21 08:38] LABS: Red Blood Cells, Urine 25-50 /hpf (0-2); White Blood Cells, Urine TNTC /hpf (0-5)
[2021-10-21 08:40] LABS: Bacteria Many /hpf; Mucus Light (0-Heavy); Squamous Epithelial Cells Not Seen /hpf (Few)
[2021-10-21 10:02] LABS: Osmolality, Serum 352 mos/KG (275-300)
[2021-10-21 13:24] LABS: Potassium, Blood 3.2 mmol/L (3.5-5.5)
[2021-10-21 15:30] LABS: PCO2 Arterial 31.1 mmHg (35-45); PO2 Arterial 67.1 mmHg (80-100); pH Blood Arterial 7.34 (7.35-7.45)
--- NOTE | 2021-10-21 18:30 | NUR ---
END OF SHIFT SUMMARY: AT THE BEGINNING OF THE SHIFT THE PATIENT WAS DROWSY. SHE OPENED HER EYES AND WOULD RESPOND, BUT WOULD FALL ASLEEP THE NURSE WAS TALKING WITH HER. DURING RT ROUNDING ON THE PATIENT, RT ASSESSED PATIENT AND DISCUSSED WITH RN THAT THE PATIENT WAS CURRENTLY ON CPAP (NOT BIPAP SETTINGS). SHE INDICATED THAT THE PATIENT DID NOT HAVE A BLEED IN OF O2 AND THAT SHE COULD BE ON RA. PATIENT TRANSITIONED TO ROOM AIR. FOR THE REST OF THE DAY, SHE WAS 94% ON RA. PATIENT CONTINUED TO BE DROWSY THROUGHOUT THE DAY WITH SOME PERIODS OF MORE OR LESS ALERTNESS. IN THE AFTERNOON DURING ROUNDING OF [place] PA STUDENT, PATIENT WAS LETHARTIC. DR. GOSS WAS NOTIFIED AND NEW ORDERS PLACED. PATIENT CONTINUED TO ALTERNATE BETWEEN RESPONDING TO VOICE AND BEING MORE DROWSY. PATIENT REPORTED PAIN ON HER BOTTOM, THAT WAS ALLEVIATED WITH REPOSITIONING. PATIENT HAD DIFFICULTY SIPPING FROM A STRAW. ABLE TO SWALLOW WATER WITH ASSISTANCE FROM RN. PATIENT WOULD FALL ASLEEP DURING THIS TIME. PATIENT THEREFORE WAS NOT SAFE TO EAT TODAY IN REGARDS TO DROWSINESS. MAINTAINED COMMUNICATION WITH DR. FLORES IN REGARDS TO LAB RESULTS. NEW ORDERS ENTERED AND IMPLEMENTED RECEIVED.
--- NOTE | 2021-10-22 04:37 | NUR ---
SHIFT SUMMARY PT HAS BEEN A LITTLE MORE ALERT AND IS ABLE TO ANSWER IS SHORT SENTENCES TO [facility]. MEDICATED FOR PAIN THIS SHIFT. DR FLORES ORDERED 30 MEQ POTASSIUM IV FOR NUMBERS TRENDING DOWN. PT IS REFUSING TO REPOSITION AND WILL ROLL BACK TO HER LEFT SIDE. PLAN IS TO CONTINUE TO MONITOR ELECTROLYTE LEVELS.
[2021-10-22 06:30] LABS: BASOPHILS ABSOLUTE AUTO 0.03 K/mm3 (0.00-0.23); BASOPHILS PERCENT AUTO 0 % (0-2); EOSINOPHILS ABSOLUTE AUTO 0.13 K/mm3 (0.00-0.68); EOSINOPHILS PERCENT AUTO 2 % (0-6); Hematocrit 29.1 % (33.0-51.0); Hemoglobin 10.2 g/dL (11.5-16.0); IMMATURE GRAN ABSOLUTE AUTO 0.04 K/mm3 (0.00-0.10); IMMATURE GRAN PERCENT AUTO 1 % (0-1); LYMPHOCYTES ABSOLUTE AUTO 2.22 K/mm3 (0.84-5.20); LYMPHOCYTES PERCENT AUTO 27 % (21-46); MONOCYTES PERCENT AUTO 9 % (4-13); Mean Corpuscular HGB 28.7 pg (26.0-34.0); Mean Corpuscular HGB Conc 35.1 g/dL (31.5-36.5); Mean Corpuscular Volume 82 fL (80-100); Mean Platelet Volume 11.6 fL (9.1-12.4); NEUTROPHILS ABSOLUTE AUTO 5.05 K/mm3 (1.96-9.15); NEUTROPHILS PERCENT AUTO 62 % (41-73); Platelet Count 197 K/mm3 (150-400); RDW Coefficient Variation 16.5 % (11.7-14.2); RDW Standard Deviation 49.8 fL (35.1-46.3); Red Blood Cell Count 3.56 M/mm3 (3.80-5.20); White Blood Cell Count 8.17 K/mm3 (4.00-11.30)
[2021-10-22 06:54] LABS: Magnesium, Blood 2.4 mg/dL (1.6-2.4)
[2021-10-22 06:56] LABS: Albumin, Blood 2.5 g/dL (3.4-5.0); Albumin/Globulin Ratio 0.7 (0.8-1.8); Bilirubin, Total 0.2 mg/dL (0.1-1.0); Bun/Creatinine Ratio 60.3 (12.0-20.0); Calcium, Blood 8.5 mg/dL (8.5-10.1); Creatinine, Blood 1.21 mg/dL (0.40-1.00); Globulin, Blood 3.4 g/dL (2.2-4.0); Phosphorus, Blood 0.9 mg/dL (2.5-4.9); Total Protein, Blood 5.9 g/dL (6.4-8.2)
[2021-10-22 10:30] LABS: PO2 Arterial 89.1 mmHg (80-100); pH Blood Arterial 7.36 (7.35-7.45)
[2021-10-22 14:58] LABS: Albumin, Blood 2.7 g/dL (3.4-5.0); Albumin/Globulin Ratio 0.7 (0.8-1.8); Bilirubin, Total 0.2 mg/dL (0.1-1.0); Bun/Creatinine Ratio 49.6 (12.0-20.0); Calcium, Blood 8.7 mg/dL (8.5-10.1); Creatinine, Blood 1.19 mg/dL (0.40-1.00); Globulin, Blood 3.7 g/dL (2.2-4.0); Potassium, Blood 3.5 mmol/L (3.5-5.5); Total Protein, Blood 6.4 g/dL (6.4-8.2)
--- NOTE | 2021-10-22 15:08 | NUR ---
PHONE NUMBERS FOR SONS: SPOKE WITH THE PATIENT'S SON SILAS THIS AFTERNOON. HE REPORTS THAT HE IS CURRENTLY USING HIS MOTHER'S PHONE AND CAN BE REACHED AT [phone]. HIS BROTHER'S NAME IS SERENITY AND HE CAN BE REACHED AT [phone].
--- NOTE | 2021-10-22 18:46 | NUR ---
END OF SHIFT SUMMARY: PATIENT HAD A NOTABLE IMPROVEMENT IN MENTATION. PATIENT ALERT EASILY WITH VERBAL INTERACTIONS. PATIENT STAYS AWAKE DURING CONVERSATIONS AND ANSWERS QUESTIONS APPROPRIATELY. SHE WILL DRIFT OFF WHEN SHE IS THINKING OF HER ANSWERS AT TIMES. PATIENT WORKED WITH ST/PT/OT. SHE REQUIRES SOME ENCOURAGEMENT. MORSE IN PLACE AND DRAINING FREELY. PATIENT CONTINUES TO HAVE PAIN WITH MOVEMENT, ESPECIALLY IN HER RIGHT LEG. PAIN CONTROLLED WITH PRN PAIN MEDICATIONS AND REPOSITIONING.
--- NOTE | 2021-10-22 19:40 | NUR ---
PT WALKED OUT AMA. REFUSED TO TALK TO STAFF ON HER WAY OUT.
--- NOTE | 2021-10-23 04:49 | NUR ---
FINANCIAL RISK MANAGER SUMMARY HAS BEEN RESTING QUIETLY THROUGH NIGHT WITH FEW INTERRUPTIONS. IVF OF D5 CONTINUES AT 75 ML/HR. MORSE DRAINING CLEAR LIGHT MAUREEN. TOLERATED MEDS WELL WITH APPLESAUCE. MONITORING FOR BM FOR STOOL FOR GUIAC. ISOLATION PRECAUTIONS MAINTAINED. CALL LIGHT IN REACH.
[2021-10-23 05:41] LABS: Hematocrit 29.1 % (33.0-51.0); Hemoglobin 9.9 g/dL (11.5-16.0)
[2021-10-23 06:05] LABS: Albumin, Blood 2.5 g/dL (3.4-5.0); Anion Gap 8 mmol/L (6-16); Blood Urea Nitrogen 47 mg/dL (8-24); Bun/Creatinine Ratio 41.2 (12.0-20.0); CO2, Blood 19 mmol/L (21-32); Calcium, Blood 8.3 mg/dL (8.5-10.1); Chloride, Blood 114 mmol/L (98-108); Creatinine, Blood 1.14 mg/dL (0.40-1.00); Glomerular Filtration Rate 52 (60-); Glucose, Blood 133 mg/dL (70-99); Phosphorus, Blood 1.7 mg/dL (2.5-4.9); Potassium, Blood 3.5 mmol/L (3.5-5.5); Sodium, Blood 141 mmol/L (136-145)
--- NOTE | 2021-10-23 17:00 | NUR ---
SHIFT SUMMARY PATIENT MEDICATED FOR PAIN X1. PATIENT DENIES NAUSEA AND SHORTNESS OF BREATH. PATIENT IS ON BEDREST. PATIENT WORKED WITH OT AND PT TODAY. WAS ABLE TO STAND BRIEFLY WITH 2P ASSIST. PATIENT DID NEED SOME ENCOURAGEMENT TO PARTICIPATE. PATIENT EAGER TO RETURN HOME. MORSE IS PATENT AND DRAINING TO GRAVITY. PATIENT IS EATING WELL TODAY. PATIENT IS A&O X3. PATIENT MENTATION IMPROVING. PATIENT IS PLEASANT AND COOPERATIVE WITH CARE.
--- NOTE | 2021-10-24 03:36 | NUR ---
MAT WEAVER SUMMARY HAS BEEN RESTING QUIETLY WITH OCCASIONAL INTERRUPTIONS. NS INFUSING AT 50 ML/HR. O2 AT 2L/MIN PER NC. MORSE DRAINING WELL. DRESSINGS AND HEEL PROTECTORS IN PLACE. REPOSITIONED FOR COMFORT AND TO HELP WITH RESPS. PREFERS TO LAY ON LEFT SIDE. VSS. CALL LIGHT IN REACH. ISOLATION PRECAUTIONS DC'D AFTER REVIEWING POTENTIAL UNDERLYING CAUSE. WILL CONTINUE TO MONITOR.
[2021-10-24 05:49] LABS: Hematocrit 28.5 % (33.0-51.0); Hemoglobin 9.4 g/dL (11.5-16.0)
[2021-10-24 06:19] LABS: Albumin, Blood 2.3 g/dL (3.4-5.0); Anion Gap 6 mmol/L (6-16); Blood Urea Nitrogen 32 mg/dL (8-24); Bun/Creatinine Ratio 30.2 (12.0-20.0); CO2, Blood 19 mmol/L (21-32); Calcium, Blood 8.5 mg/dL (8.5-10.1); Chloride, Blood 118 mmol/L (98-108); Creatinine, Blood 1.06 mg/dL (0.40-1.00); Glomerular Filtration Rate 57 (60-); Glucose, Blood 122 mg/dL (70-99); Magnesium, Blood 2.1 mg/dL (1.6-2.4); Phosphorus, Blood 2.8 mg/dL (2.5-4.9); Sodium, Blood 143 mmol/L (136-145)
--- NOTE | 2021-10-24 19:14 | NUR ---
SHIFT SUMMARY PATIENT CONFUSED AT TIMES ASKING WHEN SHE IS GOING HOME. RECIVING IV BICARB. ON CONTIN PULSE OX SATING MID 90S. C/O PAIN RIGHT HIP. MEDICATED PER JUL X2. PATIENT YELLS OUT IN PAIN WHEN CHANGING AND REPOSITIONING DUE TO RIGHT HIP. VSS. REPORT GIVEN TO ONCOMING RN.
[2021-10-25 06:05] LABS: BASOPHILS ABSOLUTE AUTO 0.04 K/mm3 (0.00-0.23); BASOPHILS PERCENT AUTO 0 % (0-2); EOSINOPHILS ABSOLUTE AUTO 0.29 K/mm3 (0.00-0.68); EOSINOPHILS PERCENT AUTO 3 % (0-6); Hematocrit 30.3 % (33.0-51.0); Hemoglobin 9.9 g/dL (11.5-16.0); IMMATURE GRAN ABSOLUTE AUTO 0.06 K/mm3 (0.00-0.10); IMMATURE GRAN PERCENT AUTO 1 % (0-1); LYMPHOCYTES ABSOLUTE AUTO 3.26 K/mm3 (0.84-5.20); LYMPHOCYTES PERCENT AUTO 32 % (21-46); MONOCYTES ABSOLUTE AUTO 0.62 K/mm3 (0.16-1.47); MONOCYTES PERCENT AUTO 6 % (4-13); Mean Corpuscular HGB 28.1 pg (26.0-34.0); Mean Corpuscular HGB Conc 32.7 g/dL (31.5-36.5); Mean Corpuscular Volume 86 fL (80-100); Mean Platelet Volume 12.4 fL (9.1-12.4); NEUTROPHILS ABSOLUTE AUTO 6.03 K/mm3 (1.96-9.15); NEUTROPHILS PERCENT AUTO 59 % (41-73); Platelet Count 229 K/mm3 (150-400); RDW Standard Deviation 53.1 fL (35.1-46.3); Red Blood Cell Count 3.52 M/mm3 (3.80-5.20)
[2021-10-25 06:44] LABS: Albumin, Blood 2.5 g/dL (3.4-5.0); Albumin/Globulin Ratio 0.7 (0.8-1.8); Bilirubin, Total 0.3 mg/dL (0.1-1.0); Calcium, Blood 9.2 mg/dL (8.5-10.1); Globulin, Blood 3.4 g/dL (2.2-4.0); Phosphorus, Blood 2.8 mg/dL (2.5-4.9); Potassium, Blood 4.2 mmol/L (3.5-5.5); Total Protein, Blood 5.9 g/dL (6.4-8.2)
--- NOTE | 2021-10-25 08:45 | NUR ---
PT ABLE TO ANSWER A/OX4 QUESTIONS HOWEVER NOTED WITH CONFUSION AND FORGETFULNESS. PT INSISTED THAT THE MD TOLD HER SHE COULD GO HOME AND WANTED TO GO HOME. EXPLAINED TO PT THAT SHE NEEDED TO STAY HERE AND IN THE END PT UNDERSTOOD. PT REFUSED TO WEAR CPAP AND RT HAD PT SIGN REFUSAL FORM. PT PLACED ON 2L NC DUE TO REPORTED ANXIETY ATTACK. PATIENT VOIDING WITHOUT ISSUE. PT WITH PAIN TO RIGHT HIP AND MEDICATED PER JUL. PT WITH POOR SLEEP.
[2021-10-25] MEDS ORDERED: HYDR1TAB94 PO (14:28)
[2021-10-25] MEDS ORDERED: VISBIOME 112.51 EACH PO (14:29)
[2021-10-25] MEDS ORDERED: SULTRIDS PO (14:29)
--- NOTE | 2021-10-25 16:29 | NUR ---
DISCHARGE SUMMARY PATIENT DISCHARGED HOME WITH HOME HEALTH. DISCHARGE PAPERWORK REVIEWED WITH PATIENT AND ALL QUESTIONS ANSWERED. WHEELCHAIR TRANSPORT ARRANGED BY CM. PRESCRIPTIONS SENT TO PATIENTS PREFERRED PHARMACY AND HARD SCRIPT FOR [facility]CO GIVEN TO PATIENT. IV AND TELE D/C'D. ALL BELONGINGS AND PATIENT AWAITING RIDE HOME.
== END 2021-10-25 17:23 | disposition home health service (06) | DRG 871 ==
LOC: ER 15:05 → MEDS 21:19
PROVIDERS: Family Medicine; Internal Medicine Nephrology; Student in an Organized Health Care Education/Training Program; ADMIT Family Medicine
DX: A41.59 Other Gram-negative sepsis (principal); G92.8 Other toxic encephalopathy; N39.0 Urinary tract infection, site not specified; E87.2 Acidosis; E87.0 Hyperosmolality and hypernatremia; N17.9 Acute kidney failure, unspecified; E86.0 Dehydration; E87.6 Hypokalemia; R65.20 Severe sepsis without septic shock; E83.41 Hypermagnesemia; E83.39 Other disorders of phosphorus metabolism; E88.09 Other disorders of plasma-protein metabolism, not elsewhere classified; E11.22 Type 2 diabetes mellitus with diabetic chronic kidney disease; I12.9 Hypertensive chronic kidney disease with stage 1 through stage 4 chronic kidney disease, or unspecified chronic kidney disease; N18.9 Chronic kidney disease, unspecified; J44.9 Chronic obstructive pulmonary disease, unspecified; G47.33 Obstructive sleep apnea (adult) (pediatric); D63.1 Anemia in chronic kidney disease; M25.559 Pain in unspecified hip; E78.5 Hyperlipidemia, unspecified; G89.29 Other chronic pain; F17.200 Nicotine dependence, unspecified, uncomplicated; Z88.8 Allergy status to other drugs, medicaments and biological substances; Z91.018 Allergy to other foods; Z86.73 Personal history of transient ischemic attack (TIA), and cerebral infarction without residual deficits; Z99.81 Dependence on supplemental oxygen; Z91.012 Allergy to eggs; Z79.84 Long term (current) use of oral hypoglycemic drugs; Z79.899 Other long term (current) drug therapy; Z98.890 Other specified postprocedural states
CPT/HCPCS: 36415; 36600; 51701; 71046; 76770; 80048; 80053; 80069; 81001; 82140; 82803; 82947; 83605; 83735; 83930; 84100; 84132; 84145; 84295; 85014; 85018; 85025; 85651; 87040; 87077; 87086; 87186; 92526; 92610; 93005; 93010; 94660; 94760; 94762; 96374-59; 96375-59; 97162; 97166; 97530; 97535; 99285-25; A9270; G0480; J0696; J0881; J1644; J2405; J3480; J7030; J7060; J7070

== ENCOUNTER 2022-02-11 15:26 | Inpatient (IN) | payer OTHER ==
[~2022-02-11] VITALS: Ht 154.9 cm; Wt 71.6 kg
[~2022-02-11 15:26] MED LIST changes: +ALDACTONE25 MG PO; +KLOR-CON 1010 ME8 PO; +SULTRIDS PO; +VISBIOME 112.51 EACH PO; +Vancocin HCl125 MG PO; +[UNRECOGNIZED DRUG - OTHER] TOP
[2022-02-11 17:40] LABS: Base Excess Venous -14.4 mmol/L; Bicarbonate Venous 13.9 mmol/L (24.0-30.0); PCO2 Venous 36.3 mmHg (38-42); PO2 Venous 74.8 mmHg (38-42); pH Blood Venous 7.19 (7.34-7.37)
[2022-02-11 18:04] LABS: Alanine Aminotransfer (ALT/SGP 9 U/L (12-78); Albumin, Blood 2.6 g/dL (3.4-5.0); Albumin/Globulin Ratio 0.6 (0.8-1.8); Alk Phos 109 U/L (50-136); Anion Gap 8 mmol/L (6-16); Aspartate Aminotrans (AST/SGOT 6 U/L (12-37); Bilirubin, Total <0.1 mg/dL (0.1-1.0); Blood Urea Nitrogen 36 mg/dL (8-24); Bun/Creatinine Ratio 19.8 (12.0-20.0); CO2, Blood 14 mmol/L (21-32); Chloride, Blood 122 mmol/L (98-108); Creatinine, Blood 1.82 mg/dL (0.40-1.00); Globulin, Blood 4.1 g/dL (2.2-4.0); Glomerular Filtration Rate 30 (60-); Glucose, Blood 111 mg/dL (70-99); Potassium, Blood 3.7 mmol/L (3.5-5.5); Sodium, Blood 144 mmol/L (136-145); Total Protein, Blood 6.7 g/dL (6.4-8.2)
[2022-02-11 18:22] LABS: BASOPHILS ABSOLUTE AUTO 0.04 K/mm3 (0.00-0.23); BASOPHILS PERCENT AUTO 0 % (0-2); EOSINOPHILS ABSOLUTE AUTO 0.09 K/mm3 (0.00-0.68); EOSINOPHILS PERCENT AUTO 1 % (0-6); Hematocrit 28.5 % (33.0-51.0); Hemoglobin 8.7 g/dL (11.5-16.0); IMMATURE GRAN ABSOLUTE AUTO 0.16 K/mm3 (0.00-0.10); IMMATURE GRAN PERCENT AUTO 2 % (0-1); LYMPHOCYTES ABSOLUTE AUTO 2.06 K/mm3 (0.84-5.20); LYMPHOCYTES PERCENT AUTO 21 % (21-46); MONOCYTES ABSOLUTE AUTO 0.62 K/mm3 (0.16-1.47); MONOCYTES PERCENT AUTO 6 % (4-13); Mean Corpuscular HGB 25.6 pg (26.0-34.0); Mean Corpuscular HGB Conc 30.5 g/dL (31.5-36.5); Mean Corpuscular Volume 84 fL (80-100); NEUTROPHILS ABSOLUTE AUTO 7.08 K/mm3 (1.96-9.15); NEUTROPHILS PERCENT AUTO 70 % (41-73); RDW Coefficient Variation 16.4 % (11.7-14.2); RDW Standard Deviation 50.6 fL (35.1-46.3); White Blood Cell Count 10.05 K/mm3 (4.00-11.30)
[2022-02-11 18:46] LABS: Mean Platelet Volume 11.4 fL (9.1-12.4); Platelet Count 411 K/mm3 (150-400)
[2022-02-11 18:53] LABS: Source, Urine Fem Cath
[2022-02-11 18:56] LABS: Appearance, Urine Cloudy (Clear); Bilirubin, Urine Neg (Neg); Blood, Urine 2+ (Neg); Color, Urine Yellow (P-Yellow); Glucose Qualitative, Urine Neg (Neg); Ketones, Urine Neg (Neg); Leukocyte Esterase, Urine 3+ (Neg); Nitrite, Urine Pos (Neg); Protein, Urine 2+ (Neg); Urobilinogen, Urine NORM (Normal)
[2022-02-11 19:28] LABS: Bacteria Many /hpf; Squamous Epithelial Cells Few /hpf (Few); White Blood Cells, Urine TNTC /hpf (0-5)
[2022-02-11 19:29] LABS: Renal Epithelial Few /hpf (0-Rare); Transitional Epithelial Cells Few /hpf (0-Rare)
[2022-02-12 02:00] LABS: Base Excess Venous -14.5 mmol/L; Bicarbonate Venous 13.6 mmol/L (24.0-30.0); PCO2 Venous 37.4 mmHg (38-42); pH Blood Venous 7.18 (7.34-7.37)
[2022-02-12 02:10] LABS: BASOPHILS ABSOLUTE AUTO 0.04 K/mm3 (0.00-0.23); BASOPHILS PERCENT AUTO 0 % (0-2); EOSINOPHILS ABSOLUTE AUTO 0.06 K/mm3 (0.00-0.68); EOSINOPHILS PERCENT AUTO 1 % (0-6); Hematocrit 27.6 % (33.0-51.0); Hemoglobin 8.2 g/dL (11.5-16.0); IMMATURE GRAN ABSOLUTE AUTO 0.02 K/mm3 (0.00-0.10); IMMATURE GRAN PERCENT AUTO 0 % (0-1); LYMPHOCYTES ABSOLUTE AUTO 1.97 K/mm3 (0.84-5.20); LYMPHOCYTES PERCENT AUTO 21 % (21-46); MONOCYTES PERCENT AUTO 7 % (4-13); Mean Corpuscular HGB 25.5 pg (26.0-34.0); Mean Corpuscular HGB Conc 29.7 g/dL (31.5-36.5); Mean Corpuscular Volume 86 fL (80-100); Mean Platelet Volume 10.8 fL (9.1-12.4); NEUTROPHILS ABSOLUTE AUTO 6.84 K/mm3 (1.96-9.15); NEUTROPHILS PERCENT AUTO 71 % (41-73); Platelet Count 454 K/mm3 (150-400); RDW Coefficient Variation 16.4 % (11.7-14.2); RDW Standard Deviation 51.7 fL (35.1-46.3); Red Blood Cell Count 3.22 M/mm3 (3.80-5.20); White Blood Cell Count 9.63 K/mm3 (4.00-11.30)
[2022-02-12 02:23] LABS: Albumin, Blood 2.4 g/dL (3.4-5.0); Albumin/Globulin Ratio 0.6 (0.8-1.8); Bilirubin, Total 0.2 mg/dL (0.1-1.0); Bun/Creatinine Ratio 19.1 (12.0-20.0); Calcium, Blood 9.2 mg/dL (8.5-10.1); Creatinine, Blood 1.73 mg/dL (0.40-1.00); Globulin, Blood 4.1 g/dL (2.2-4.0); Potassium, Blood 3.6 mmol/L (3.5-5.5); Total Protein, Blood 6.5 g/dL (6.4-8.2)
--- NOTE | 2022-02-12 06:00 | NUR ---
ASSUMED CARE OF PATIENT UPON ARRIVAL TO PCU 13 FROM ER AT 23:30 ON 02/11/22. PATIENT ARRIVED WITH MORSE CATHETER IN PLACE AND IV FLUIDS HUNG BUT NOT INFUSING. 20 GAUGE IV TO LEFT UPPER ARM REPEATEDLY OCCLUDED DUE TO LOCATION AND POSITION. ASSISTANCE REQUESTED FROM PCU LENS GENERATING MACHINE TENDER MIKE FOR PLACEMENT OF ULTRASOUND GUIDED IV TO RIGHT UPPER EXTREMITY. COMPLETED BOLUS 2 OF 2 AND STARTED MAINTENANCE FLUIDS. PATIENT ARRIVED DISHEVELD, SMELLING OF URINE AND FECES, WITH MULTIPLE WOUNDS (TOTAL OF 12 PICTURES TAKEN): MOISTURE RELATED SKIN BREAKDOWN AND YEAST UNDER BOTH BREASTS AND IN BOTH GROINS. EXCORIATION OF BUTTOCKS AND PERINEUM DUE TO INCONTINENCES OF BOWEL AND BLADDER, MOISTURE RELATED DERMATITIS TO BUTTOCKS, LOW BACK AND THIGHS. PRESSURE WOUND TO RIGHT HEEL AND RIGHT CALF. COMPLETE BED BATH AND SHAMPOO PROVIDED. PATIENT HAD DRIED FECES TO THE BOTTOM OF HER FEET. PATIENT CRIES OUT IN PAIN WITH THE SLIGHTEST TOUCH OF ANY PART OF HER BODY FROM HER TRUNK AREA TO HER TOES. 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 PT REPORTS THAT SHE IS WHEELCHAIR BOUND AND SPENDS A GOOD PART OF HER DAY IN THE WHEELCHAIR OR IN BED. SHE ALSO REPORTS BEING LEFT ALONE FOR LONG PERIODS OF TIME AND HAVING TO SIT IN URINE OR STOOL UNTIL SOMEONE IS HOME TO ASSIST HER. SHE TOLD THE KINDERGARTEN CLASSROOM TEACHER THAT SHE WEARS 4 LPM OXYGEN AT HOME AND TOLD ME THAT SHE DOESN'T WEAR OXYGEN AT HOME. SHE MAINTAINED SpO2 OF 97 - 100% ON ROOM AIR THROUGHOUT THE NIGHT. SHE DOES REPORT SMOKING 1.5 PACKS OF CIGARETTES A DAY BUT DECLINED A NICOTINE PATCH. DUE TO HER MENTATION, SHE IS NOT A RELIABLE HISTORIAN FOR HER MEDICAL HISTORY OR CURRENT MEDICATIONS. SHE DID BRING IN A COUPLE PRESCRIPTION BOTTLES FROM HOME (VANCOMYCIN, TYLENOL, PEPCID) AND THESE WERE DOCUMENTED AND PLACED IN THE LOCKED MEDICATION BIN FOR PCU 13. REPORTED TO RESIDENT MD DR. BELTRAN ABOUT CONCERNS REGARDING POSSIBLE NEGLECT IN CURRENT HOME SITUATION CONSIDERING CONDITION OF PATIENT. ALSO REPORTED THAT PATIENT IS EASILY AGITATED, RISES TO ANGER, YELLS AND CUSSES AT STAFF QUITE FREQUENTLY.
[2022-02-12] MEDS ORDERED: ACET500 PO (06:17)
[2022-02-12 09:05] LABS: C DIFFICILE DNA Duplicate (Negative)
[2022-02-12 16:12] LABS: Bun/Creatinine Ratio 18.2 (12.0-20.0); Calcium, Blood 9.1 mg/dL (8.5-10.1); Creatinine, Blood 1.65 mg/dL (0.40-1.00); Potassium, Blood 3.3 mmol/L (3.5-5.5)
--- NOTE | 2022-02-13 12:20 | NUR ---
CARE NOTE THIS NURSE NOTIFIED DR. CHISHOLM REGARDING PT HR OF 35 AT APPROX. 1200. THIS NURSE WAS NOTIFIED BY TELE REGARDING EPISODE OF BRADYCARDIA. PT WAS EATING AT THE TIME. NO NEW ORDERS FROM DR. CHISHOLM.
--- NOTE | 2022-02-13 18:55 | NUR ---
SHIFT SUMMARY PT ALERT AND ORIENTED X 4, SHE IS ABLE TO MAKE HER NEEDS KNOWN AND CALLS APPROPRIATLY. SHE DENIED FEELINGS OF NAUSEA, BUT REPORTED GENERALIZED PAIN WELL PAIN IN HER RECTUM FROM RECTAL TUBE, REPOSITIONING AND UNINTERRUPTED REST PROVIDED, ALSO SEE EMAR FOR PAIN MANAGEMENT. SHE SLEPT MOST OF THE AFTERNOON. BP STABLE, SPO2 98% VIA ROOM AIR. HR SR/ST, SEE PREVIOUS NOTE REGARDING EPISODE OF BRADYCARDIA. DR. CHISHOLM MADE AWARE, ALSO SEE NOTE. IV IN RIGHT FOREARM INFUSING. IV IN LEFT FOREARM SALINE LOCKED. MORSE CATHETER IN PLACE AND DRAINING LIGHT, CLOUDY YELLOW OUTPUT. RECTAL TUBE IN PLACE. SKIN CARE PROVIDED INCLUDING ELIZABETH CARE W/ APPLICATION OF BARRIER CREAM/DESEDEX POWDER. BLUE TOP CREAM ALSO APPLIED ON ARMS, LEGS, HIPS, SHOULDERS AND BACK. IN AM PT COMPLAINED OF GENERALIZED ITCHINESS, ORDER FOR ATARAX PLACED AND PT REPORTED FEELING MUCH RELIEF. WOUND CARE NURSE DRESSED WOUNDS ALSO THIS SHIFT. PHYSICAL THERAPY EVALUATED PT THIS AFTERNOON. NO ACUTE CHANGES NOTED. PT RECENTLY REPOSITIONED AND NOW APPEARS TO BE SLEEPING. CALL LIGHT IN REACH.
[2022-02-14 03:57] LABS: BASOPHILS ABSOLUTE AUTO 0.03 K/mm3 (0.00-0.23); BASOPHILS PERCENT AUTO 0 % (0-2); EOSINOPHILS PERCENT AUTO 3 % (0-6); Hematocrit 27.6 % (33.0-51.0); IMMATURE GRAN ABSOLUTE AUTO 0.03 K/mm3 (0.00-0.10); IMMATURE GRAN PERCENT AUTO 0 % (0-1); LYMPHOCYTES PERCENT AUTO 30 % (21-46); MONOCYTES ABSOLUTE AUTO 0.65 K/mm3 (0.16-1.47); MONOCYTES PERCENT AUTO 9 % (4-13); Mean Corpuscular HGB 24.9 pg (26.0-34.0); Mean Corpuscular Volume 86 fL (80-100); Mean Platelet Volume 10.1 fL (9.1-12.4); NEUTROPHILS ABSOLUTE AUTO 3.98 K/mm3 (1.96-9.15); NEUTROPHILS PERCENT AUTO 57 % (41-73); Platelet Count 364 K/mm3 (150-400); RDW Coefficient Variation 16.5 % (11.7-14.2); RDW Standard Deviation 52.6 fL (35.1-46.3); Red Blood Cell Count 3.21 M/mm3 (3.80-5.20); White Blood Cell Count 6.99 K/mm3 (4.00-11.30)
[2022-02-14 04:16] LABS: Calcium, Blood 8.5 mg/dL (8.5-10.1); Creatinine, Blood 1.27 mg/dL (0.40-1.00); Potassium, Blood 3.1 mmol/L (3.5-5.5)
--- NOTE | 2022-02-14 06:09 | NUR ---
SHIFT SUMMARY NO ACUTE EVENTS OVERNIGHT. PT ALERT AND ORIENTED X4. IRRITABLE BUT COOPERATIVE. AFEBRILE. BP STABLE. HR 60-90'S. ON RA SATS OVER 96%. Q2 TURNS. 8-10/10 LEG PAIN, RELIEVED WITH TYLENOL. PAIN W/ MOVEMENT, LESS W/ REST. CBGS WNL, NO INSULIN COVERAGE NEEDED. SKIN TREATED PER WOUND CARE ORDERS. IN BED SLEEPING WITH CALL ALARM AT SIDE, WILL CONTINUE TO MONITOR UNTIL REPORT GIVEN TO ONCOMING RN
--- NOTE | 2022-02-14 10:20 | NUR ---
IV ACCESS PT LAST IV ACCESS DEVICE UNABLE TO MAINTAIN CURRENTLY ORDERED INFUSION RATE. ATTEMPTED TO INFUSE ORDERED ROCEPHIN AND ROUGHLY HALF LEAKED OUT WHILE DOING SO. ATTEMPTED NEW IV START BUT WAS UNSUCCESSFUL. PT NOW REFUSING ANY MORE ATTEMPTS.
--- NOTE | 2022-02-14 18:57 | NUR ---
SHIFT SUMMARY S/P TOXIC METABOLIC ENCEPHALOPATHY, A/OX4, VSS, TOLERATING PO, REPORTS SOME PAIN WHICH WAS MANAGED PER EMAR, MORSE AND RECTAL TUBE IN PLACE WORKING INTENDED. PT ABLE TO REPOSITION SELF T/O MOST OF THE DAY, SOME ASSISTANCE NEEDED A FEW TIMES WHICH WAS PROVIDED BY STAFF, REDNESS ON COCCYX APPEARS TO BE IMPROVING THOUGH CREAM AND POWDER WERE USED. NO ACUTE EVENTS THIS SHIFT, CALL LIGHT IN REACH, WILL CTM AND REPORT TO ONCOMING NOC RN.
--- NOTE | 2022-02-15 06:34 | NUR ---
SHIFT SUMMARY PT AOX3 AT START OF SHIFT, SEEMED TO BECOME INCREASINGLY CONFUSED AND DISORIENTED AT TIMES LATER IN SHIFT AND WAS HALLUCINATING OR CONFUSING DREAMS WITH REALITY. PT MADE COMMENTS ABOUT CUTTING A PILL ON HER TABLE IN HALF AND NEEDING IT HANDED TO HER EVEN THOUGHT NO PILL WAS VISIBLE OR PRESENT. PT ALSO MADE COMMENTS ABOUT PEOPLE SPEAKING IN OTHER LANGUAGES IN THE [place]. FOUND SEVERAL TIMES WHEN THIS RN TO BEDSIDE D/T INCREASE IN HR THAT PT WAS PULLING OFF GOWN AND PULLING AT LINES AND DISORIENTED. PT UNCOOPERATIVE WITH MUCH OF HANDS ON CARE AND CUSSING AT AND THREATENING STAFF. THIS RN HAD TO TELL PT THAT THREATS AGAINST STAFF ARE NOT OKAY AFTER PT THREATENED TO KILL STAFF FOR CLEANING AND DRESSING WOUNDS PER ORDERS. PT REFUSED FULL BED BATH, IRRITABLE AND CUSSING AT STAFF DURING LINEN CHANGES AND REPOSITIONING ATTEMPTS. WHEN REPOSITIONED, PT FREQUENTLY WANTED TO MOVE BACK TO L SIDE. PT ASKED TO BE GIVEN HER CIGARETTES AND A PHYSICAL DAMAGE APPRAISER IN THE NIGHT SO SHE COULD GO OUT TO SMOKE. THIS RN EXPLAINED THE SMOKING POLICY TO PT WHO SEEMED DISORIENTED, PT STATED "I DID IT BEFORE!". PT ALSO STATED "I DON'T EVEN KNOW WHERE I'M AT" AND ASKED THIS RN TO TAKE HER BACK TO HER ROOM. BREATHING OTHERWISE APPEARS UNLABORED WITH SOME DYSPNEA WITH REPOSITIONING IN BED. SR-ST. SOME SCANT LEAKAGE OBSERVED FROM RECTAL TUBE, OTHERWISE DRAINING BROWN LIQUID-SOFT STOOL. C/O PAIN FROM BUTTOCKS AND R LEG. MEDICATED PER MAR FOR PAIN, OT ORDER FOR OXY GIVEN, PROVIDED SOME RELIEF.
--- NOTE | 2022-02-15 10:19 | NUR ---
ASSUMED PT CARE AT 0715 PT IS ALERT AND ORIENTED X4; ABLE TO MAKE HER NEEDS KNOWN. VERY RESISTANT AND NON-COMPLIANT WITH THERAPIES. HOLLERS OUT WITH MINIMAL TOUCHING OR MOVEMENT. HAS SEVERE EXCORIATION TO BUTTOCKS AND A WOUND WITH A DRESSING IN PLACE TO RLE. ENCOURAGED PT TO TAKE A SHOWER TODAY PRIOR TO CHANGING DRESSINGS. PT ADAMANTLY REFUSED BATH/SHOWER STATING SHE GOT ONE YESTERDAY AND IT HURT WHEN THEY WASHED HER. EDUCATED REGARDING HER EXTENSIVE WOUNDS AND THAT WASHING THEM TO KEEP THEM CLEAN WILL HELP THE HEALING PROCESS AND THAT IF PT NEGLECTS THEM, WELL SELF CARE THEY MAY GET WORSE. PT DIDN'T RESPOND AND REMAINED WITH THE SAME ANSWER THAT SHE DID NOT WANT A BATH OR A SHOWER. VSS, SEE FLOWSHEET. WILL CONTINUE TO ENCOURAGE PT TO BE RECEPTIVE TO CARES. RECTAL TUBE CONTINUES DRAINING LIQUID BROWN STOOL. MORSE CATHETER IS PATENT AND DRAINING CLEAR, YELLOW URINE TO GRAVITY. CALL LIGHT WITHIN REACH; WILL CONTINUE TO MONITOR.
--- NOTE | 2022-02-15 10:31 | NUR ---
PT REFUSED LOVENOX THIS MORNING
--- NOTE | 2022-02-15 11:52 | NUR ---
REAPPROACHED PT REGARDING BED BATH. PT VERY HESITANT AND WAS VERY CANDIS MAKING STATEMENTS REGARDING US BEING SO WORRIED ABOUT HER HYGIENE AND RASH TO ELIZABETH AREA. EDUCATED REGARDING RASH GETTING WORSE THE MORE IT IS LEFT ALONE AND NOT DEALT WITH. PT AGREED TO A BED BATH AND GENTLE CLEANING OF ELIZABETH AREA. THE POWDER AND CREAM THAT ARE BEING MIXED TOGETHER ARE MAKING A THICK PASTE THAT IS HARD TO CLEAN THOROUGHLY; THEREFORE, REACHED OUT TO REGARDING D/CING AND CHANGING TO NYSTATIN CREAM INSTEAD; STILL WAITING ON RESPONSE. RECTAL TUBE HAS BEEN D/C'D PER ORDERS. CATHETER CARES PERFORMED.
--- NOTE | 2022-02-15 18:21 | NUR ---
END OF SHIFT SUMMARY PT CONTINUES TO BE RESISTANT TO CARES. APPEARS FORGETFUL AT TIMES, BUT OVERALL HAS BEEN ALERT AND ORIENTED. REQUIRES A LOT OF EDUCATION REGARDING ELIZABETH CARES AND HYGIENE TO PREVENT FURTHER DETERIORATION. PT RECEIVED A BED BATH TODAY WITH GOOD ELIZABETH AND CATH CARE BEING PERFORMED. PT WARY OF APPLYING NYSTATIN CREAM; WILL CONTINUE TO EDUCATE AND ENCOURAGE. PT HAS YET TO HAVE A BM SINCE RECTAL TUBE REMOVED EARLIER IN THE SHIFT. SHE IS EATING AND DRINKING FLUIDS ADEQUATELY. MEDICAL FLOOR STATUS AT THIS TIME WITH TELEMETRY. MORSE CATH CONTINUES TO DRAIN CLEAR, YELLOW URINE. CHANGED DRESSINGS TO RLE, WHICH ARE CDI AT THIS TIME. CALL LIGHT WITHIN REACH; WILL CONTINUE TO MONITOR UNTIL REPORT IS HANDED OFF TO ONCOMING RN.
--- NOTE | 2022-02-15 23:59 | NUR ---
patient arrived to room 341 from PCU 13 at 2355. alert to name, and place. Stated no pain on arrival, but was a little "ouchy" with minimal touch and also when bp was taken. VSS at time of arrival. Bed locked and low, alarm on for safety. will continue close monitoring.
--- NOTE | 2022-02-16 00:06 | NUR ---
REPORT CALLED TO LISA MERRILL ON MEDICAL FLOOR. TRANFERED TO RM 341 VIA BED.
[2022-02-16 05:31] LABS: BASOPHILS ABSOLUTE AUTO 0.01 K/mm3 (0.00-0.23); BASOPHILS PERCENT AUTO 0 % (0-2); EOSINOPHILS ABSOLUTE AUTO 0.25 K/mm3 (0.00-0.68); EOSINOPHILS PERCENT AUTO 4 % (0-6); Hematocrit 22.7 % (33.0-51.0); Hemoglobin 7.1 g/dL (11.5-16.0); IMMATURE GRAN ABSOLUTE AUTO 0.03 K/mm3 (0.00-0.10); IMMATURE GRAN PERCENT AUTO 1 % (0-1); LYMPHOCYTES ABSOLUTE AUTO 2.71 K/mm3 (0.84-5.20); LYMPHOCYTES PERCENT AUTO 45 % (21-46); MONOCYTES ABSOLUTE AUTO 0.53 K/mm3 (0.16-1.47); MONOCYTES PERCENT AUTO 9 % (4-13); Mean Corpuscular HGB 25.7 pg (26.0-34.0); Mean Corpuscular HGB Conc 31.3 g/dL (31.5-36.5); Mean Corpuscular Volume 82 fL (80-100); Mean Platelet Volume 10.7 fL (9.1-12.4); NEUTROPHILS ABSOLUTE AUTO 2.44 K/mm3 (1.96-9.15); NEUTROPHILS PERCENT AUTO 41 % (41-73); Platelet Count 251 K/mm3 (150-400); RDW Coefficient Variation 16.7 % (11.7-14.2); RDW Standard Deviation 49.7 fL (35.1-46.3); Red Blood Cell Count 2.76 M/mm3 (3.80-5.20); White Blood Cell Count 5.97 K/mm3 (4.00-11.30)
[2022-02-16 05:44] LABS: Bun/Creatinine Ratio 12.1 (12.0-20.0); Calcium, Blood 8.2 mg/dL (8.5-10.1); Creatinine, Blood 1.16 mg/dL (0.40-1.00); Potassium, Blood 3.6 mmol/L (3.5-5.5)
--- NOTE | 2022-02-16 08:42 | NUR ---
PATIENT VERY RESISTANT TO CARE AND HYGIENE EFFORTS BY NURSING STAFF. JUST AFTER HER ARRIVAL, SHE YELLED OUT HELP SEVERAL TIMES THEN ASKED IF SOMEONE WOULD "SCRATCH HER BUTT". THIS RN EXPLAINED THAT WE COULD PROBABLY MAKE HER SKIN MORE COMFORTABLE WITH SOME SOAP AND WATER HER SKIN IS VERY IRRITATED AND EXCORIATED ALL OVER HER BOTTOM. PATIENT SWUNG BACK AT THIS RN WITH HER ARM AND TOLD ME TO GET OUT OF HER ROOM. SHE ALSO KEPT PULLING TELE LEADS OFF SEVERAL TIMES, THEN FINALLY REFUSED TO ALLOW THIS NURSE TO COMPLETELY REPLACE HER WIRES AND TELE BATTERIES. IT TOOK A SECOND NURSE TO GET HER INTO A POSITION WHERE WE COULD CHANGE EVERYTHING OUT ONE MORE TIME WHILE SHE KEPT TRYING TO ROLL OVER. SPOKE WITH PATIENT ABOUT THE IMPORTANCE OF FREQUENT POSITION CHANGES AND SKIN/WOUND CARE. HOWEVER, THE PATIENT WAS CURLED INTO A BALL WITH HAND OVER EAR. DRESSINGS ON RIGHT LEG INTACT. TELE: SR WHEN THEY COULD GET A READING
--- NOTE | 2022-02-16 12:07 | NUR ---
pt angry with staff and wants to be left alone, assisted night rn to replace tele leads after turning her, she is refusing to cooperate, lungs are clear, dim in bases, resp even and unlabored, no cough noted, hrr, trace edema noted to b/l le, piv s.l., btx4, abd flat soft nontender, briefs in place, sue cath draining dawood urine, skin has dressings to right leg, mallory area excoriated, moves herself in bed, wants to lay way over on her left side, ange, can swallow po meds with water, call light in reach.
--- NOTE | 2022-02-16 18:32 | NUR ---
pt has been uncooperative with care, she yells and is angry with changing her, did start her on percocet, she slept after administering it. her bottom is very red and stings, no further change this shift. call light in reach.
--- NOTE | 2022-02-17 00:15 | NUR ---
INTERMITTENT N/V. RECEIVED ZOFRAN EARLIER. RESETING QUIETLY AT THIS TIME. CALL LIGHT IN REACH
--- NOTE | 2022-02-17 04:10 | NUR ---
APPLICATION DBA SUMMARY AWAKE AT INTERVALS, NAUSEA AND VOMITING. ZOFRAN ADMINISTERED - SEE MAR FOR DETAILS. MORSE DRAINING. ALERT AND ORIENTED TO QUESTIONS ASKED. CONTACT PRECAUTIONS MAINTAINED. CALL LIGHT IN REACH. DRESSING OF RIGHT LEG INTACT, POWDER, ETC APPLIED TO BOTTOM ESCORIATION. CURRENTLY RESTING QUIETLY. WILL CONTINUE TO MONITOR.
[2022-02-17] MEDS ORDERED: PANTOPRAZOLE SO40 M2 PO (05:51)
[2022-02-17 11:17] LABS: BASOPHILS ABSOLUTE AUTO 0.02 K/mm3 (0.00-0.23); BASOPHILS PERCENT AUTO 0 % (0-2); EOSINOPHILS PERCENT AUTO 2 % (0-6); Hematocrit 28.7 % (33.0-51.0); Hemoglobin 8.6 g/dL (11.5-16.0); IMMATURE GRAN ABSOLUTE AUTO 0.02 K/mm3 (0.00-0.10); IMMATURE GRAN PERCENT AUTO 0 % (0-1); LYMPHOCYTES ABSOLUTE AUTO 1.64 K/mm3 (0.84-5.20); LYMPHOCYTES PERCENT AUTO 26 % (21-46); MONOCYTES ABSOLUTE AUTO 0.39 K/mm3 (0.16-1.47); MONOCYTES PERCENT AUTO 6 % (4-13); Mean Corpuscular HGB 25.4 pg (26.0-34.0); Mean Corpuscular Volume 85 fL (80-100); Mean Platelet Volume 10.4 fL (9.1-12.4); NEUTROPHILS ABSOLUTE AUTO 4.12 K/mm3 (1.96-9.15); NEUTROPHILS PERCENT AUTO 66 % (41-73); Platelet Count 366 K/mm3 (150-400); RDW Coefficient Variation 17.2 % (11.7-14.2); RDW Standard Deviation 53.2 fL (35.1-46.3); Red Blood Cell Count 3.39 M/mm3 (3.80-5.20); White Blood Cell Count 6.29 K/mm3 (4.00-11.30)
[2022-02-17 11:39] LABS: Albumin, Blood 2.1 g/dL (3.4-5.0); Albumin/Globulin Ratio 0.5 (0.8-1.8); Bilirubin, Total 0.2 mg/dL (0.1-1.0); Bun/Creatinine Ratio 12.6 (12.0-20.0); Calcium, Blood 9.2 mg/dL (8.5-10.1); Creatinine, Blood 1.27 mg/dL (0.40-1.00); Globulin, Blood 3.9 g/dL (2.2-4.0); Magnesium, Blood 1.7 mg/dL (1.6-2.4); Phosphorus, Blood 3.3 mg/dL (2.5-4.9); Potassium, Blood 3.3 mmol/L (3.5-5.5)
--- NOTE | 2022-02-17 19:35 | NUR ---
SHIFT SUMMARY PT IS CONFUSED AT TIMES, AND EXTREMEMLY PAINFUL TO TOUCH. INCONTINENT IN ATTENDS. TWO EPISODES OF DIARRHEA. TEMP AT BEGINNING OF SHIFT 101.5, TREATED WITH TYLENOL, TEMP RECHECK 99.5. PT C/O NAUSEA, WAS NOT ABLE TO EAT MEALS BUT SHE ENJOYS SHERBERT AND SPRITE. PT DECLINED IV ANTIBIOTICS AND REFUSED IV PLACEMENT. WOUND CARE PERFORMED PER ORDERS TO RLE. PT RESPONDED WELL TO BACKRUB WITH LOTION TO SOOTHE HER ITCHY SKIN, RECEIVING ATARAX SCHEDULED. NO ACUTE CHANGES.
--- NOTE | 2022-02-18 05:22 | NUR ---
INFRASTRUCTURE TECHNICIAN SUMMARY HAS BEEN RESTING QUIETLY WITRH OCCASIONAL INTERRUPTION. RECEIVED ZOFRAN AT SHIFT COMMENCE, MED EFFECTIVE, NO NOTED N/V OF THIS WRITING SINCE. LITO ANDERSEN. TELE ON, ONE PAUSE REPORTED FROM TELE MONITOR - OF A LITTLE MORE THAN A SECOND. PT ASYMPTOMATIC. NO NOTED S/S ACUTE DISTRESS. CALL LIGHT IN REACH. PRECAUTIONS MAINTAINED
--- NOTE | 2022-02-18 14:02 | NUR ---
EMESIS PT C/O NAUSEA T/O THIS SHIFT. REFUSING MEDS AND MEALS. DR. BERGER NOTIFIED OF THIS AND CHANGED ZOFRAN ORDER TO SL AT 1240. PT WILLING AND ABLE TO TAKE THIS. PT VOMITED 150 CC AT 1400 TODAY.
--- NOTE | 2022-02-18 18:46 | NUR ---
SHIFT SUMMARY PT REFUSED MOST CARE TODAY. PT DOES ALLOW FOR ELIZABETH CARE AFTER A BM, BUT YELLS STOP WHILE BEING CLEANED DUE TO PAIN. CREAM APPLIED TO BOTTOM AFTER CHANGES FOR SKIN BARRIER. PT REFUSED FOR HEEL WOUND TO BE CHANGED THIS SHIFT. REFUSED ALL AM MEDS AND MOST MEDS THE DURING THE DAY. PT QUESTIONS CARE OFTEN, EVEN AFTER EDUCATION. OFTEN ASKS THE SAME QUESTIONS OVER AGAIN AFTERWARDS. MORSE REMOVED TODAY. PT HAS NOT YET URINATED. PT REFUSING MOST MEALS AND NOT DRINKING MUCH HOWEVER. PT ENCOURAGED TO DRINK GATORADE TO HELP WITH HYDRATION. NO OTHER ACUTE CHANGES IN ASSESSMENT AT THIS TIME. VS REVIEWED. PT RESTING IN BED. CALL LIGHT IN REACH.
[2022-02-19 05:36] LABS: BASOPHILS ABSOLUTE AUTO 0.02 K/mm3 (0.00-0.23); BASOPHILS PERCENT AUTO 0 % (0-2); EOSINOPHILS ABSOLUTE AUTO 0.21 K/mm3 (0.00-0.68); EOSINOPHILS PERCENT AUTO 3 % (0-6); Hematocrit 25.1 % (33.0-51.0); Hemoglobin 7.3 g/dL (11.5-16.0); IMMATURE GRAN ABSOLUTE AUTO 0.02 K/mm3 (0.00-0.10); IMMATURE GRAN PERCENT AUTO 0 % (0-1); LYMPHOCYTES ABSOLUTE AUTO 3.05 K/mm3 (0.84-5.20); LYMPHOCYTES PERCENT AUTO 47 % (21-46); MONOCYTES ABSOLUTE AUTO 0.56 K/mm3 (0.16-1.47); MONOCYTES PERCENT AUTO 9 % (4-13); Mean Corpuscular HGB 24.8 pg (26.0-34.0); Mean Corpuscular HGB Conc 29.1 g/dL (31.5-36.5); Mean Corpuscular Volume 85 fL (80-100); Mean Platelet Volume 10.5 fL (9.1-12.4); NEUTROPHILS ABSOLUTE AUTO 2.66 K/mm3 (1.96-9.15); NEUTROPHILS PERCENT AUTO 41 % (41-73); Platelet Count 308 K/mm3 (150-400); RDW Coefficient Variation 17.3 % (11.7-14.2); RDW Standard Deviation 53.3 fL (35.1-46.3); Red Blood Cell Count 2.94 M/mm3 (3.80-5.20); White Blood Cell Count 6.52 K/mm3 (4.00-11.30)
--- NOTE | 2022-02-19 06:03 | NUR ---
SHIFT SUMMARY PATIENT ALERT AND ORIENTED X3. HAD NO COMPLAINTS OF PAIN OR SHORTNESS OF BREATH. REFUSED EVENING MEDICATIONS. NO ACUTE ISSUES NOTED OVERNIGHT. CALL LIGHT WITHIN REACH. REPORT GIVEN TO ONCOMING RN.
[2022-02-19 06:07] LABS: Albumin, Blood 1.9 g/dL (3.4-5.0); Anion Gap 4 mmol/L (6-16); Blood Urea Nitrogen 13 mg/dL (8-24); Bun/Creatinine Ratio 11.4 (12.0-20.0); CO2, Blood 22 mmol/L (21-32); Chloride, Blood 121 mmol/L (98-108); Creatinine, Blood 1.14 mg/dL (0.40-1.00); Glomerular Filtration Rate 52 (60-); Glucose, Blood 91 mg/dL (70-99); Magnesium, Blood 1.7 mg/dL (1.6-2.4); Phosphorus, Blood 2.4 mg/dL (2.5-4.9); Potassium, Blood 3.3 mmol/L (3.5-5.5); Sodium, Blood 147 mmol/L (136-145)
--- NOTE | 2022-02-19 14:56 | NUR ---
SHIFT SUMMARY PT RESTING QUIETLY AT START OF SHIFT. WOKE EASILY FOR CARE. PT INCONTINENT OF BOWELS WITH DIARRHEA R/T C-DIFF. ATTENDS CHANGED MULTIPLE TIMES TO PRESENT THIS SHIFT. PT MOSTLY NONCOMPLIANT WITH MEDS AND TX'S. DID AGREE TO TAKE ABX THIS AM. PT REFUSING TO WORK WITH P/T AGAIN TODAY, THOUGH ENCOURAGED. PT ALSO REFUSED K+ REPLACEMENT TODAY. DR BERGER NOTIFIED. PT REMOVING TELE MX AND LEADS THROUGH OUT THE MORNING; SR W/NO EVENTS PER TELE MX, TELE D/C'D. NYSTATIN OINTMENT APPLIED TO ELIZABETH AREA/BUTTOCKS; PT REPORTED IT VERY SOOTHING AND HELPFUL. DENIED FURTHER NEEDS AT THIS TIME. ABLE TO USE CALL LT FREQUENTLY.
[2022-02-20 05:09] LABS: BASOPHILS ABSOLUTE AUTO 0.03 K/mm3 (0.00-0.23); BASOPHILS PERCENT AUTO 0 % (0-2); EOSINOPHILS ABSOLUTE AUTO 0.29 K/mm3 (0.00-0.68); EOSINOPHILS PERCENT AUTO 4 % (0-6); Hematocrit 26.7 % (33.0-51.0); Hemoglobin 8.1 g/dL (11.5-16.0); IMMATURE GRAN ABSOLUTE AUTO 0.03 K/mm3 (0.00-0.10); IMMATURE GRAN PERCENT AUTO 0 % (0-1); LYMPHOCYTES ABSOLUTE AUTO 2.74 K/mm3 (0.84-5.20); LYMPHOCYTES PERCENT AUTO 40 % (21-46); MONOCYTES ABSOLUTE AUTO 0.53 K/mm3 (0.16-1.47); MONOCYTES PERCENT AUTO 8 % (4-13); Mean Corpuscular HGB 25.6 pg (26.0-34.0); Mean Corpuscular HGB Conc 30.3 g/dL (31.5-36.5); Mean Corpuscular Volume 84 fL (80-100); Mean Platelet Volume 10.4 fL (9.1-12.4); NEUTROPHILS ABSOLUTE AUTO 3.21 K/mm3 (1.96-9.15); NEUTROPHILS PERCENT AUTO 47 % (41-73); Platelet Count 299 K/mm3 (150-400); RDW Coefficient Variation 17.1 % (11.7-14.2); RDW Standard Deviation 52.5 fL (35.1-46.3); Red Blood Cell Count 3.17 M/mm3 (3.80-5.20); White Blood Cell Count 6.83 K/mm3 (4.00-11.30)
[2022-02-20 05:36] LABS: Albumin, Blood 2.1 g/dL (3.4-5.0); Anion Gap 4 mmol/L (6-16); Blood Urea Nitrogen 13 mg/dL (8-24); Bun/Creatinine Ratio 11.9 (12.0-20.0); CO2, Blood 23 mmol/L (21-32); Chloride, Blood 120 mmol/L (98-108); Creatinine, Blood 1.09 mg/dL (0.40-1.00); Glomerular Filtration Rate 55 (60-); Glucose, Blood 97 mg/dL (70-99); Magnesium, Blood 1.6 mg/dL (1.6-2.4); Phosphorus, Blood 2.5 mg/dL (2.5-4.9); Potassium, Blood 3.4 mmol/L (3.5-5.5); Sodium, Blood 147 mmol/L (136-145)
--- NOTE | 2022-02-20 06:13 | NUR ---
SHIFT SUMMARY; PT IS AXO X3, MILD CONFUSION. PT DOES NOT GET OUT OF BED AT THIS TIME, BUT WOULD RATHERWISE BE A 2 PERSON ASSIST. PT HAD MULTIPLE LOOSE STOOLS THROUGH THE SHIFT. EXTENSIVE REDDENING, EXCORIATION AND SKIN BREAKDOWN SEEN ON THE PATIENTS PERNIUM/BUTTOCK/GROIN/ABD FOLD AREAS. PT DOES NOT WANT ANY TREATMENT FOR GROIN OR ABD FOLD SKIN BREAKDOWN. PT EXPRESSES PAIN WHENEVER WE WIPE HER ELIZABETH AREA AFTER A BM. PT STATES THAT THE BARRIER CREAM DOES HELP ALLEVIATE SOME OF THE PAIN TO THE ELIZABETH AREA. PT DID NOT REQUIRE INSULIN COVERAGE LAST NIGHT THE HS BS WAS 105. PT REFUSED POTASSIUM. PT WAS COOPERATIVE WITH MOST PERSONAL CARE LAST NIGHT. PT DID NOT ALLOW ME TO ASSESS HER ULCERATION ON HER R HEEL, PT WOULD NOT ALLOW ME TO ACCESS HER LEGS FOR BREAKDOWN OR WOUNDS SHE STATES TOUCHING AND MOVING THEM HURTS HER. PT'S O2 REMAINED IN THE MID 90'S THROUGHOUT THE NIGHT ON RA. PT IS CURRENTLY RESTING IN BED, THE BED IS IN THE LOWEST POSITION AND CALL LIGHT IS IN HAND. PT HAD NO ACUTE MEDICAL CHANGES THROUGHOUT THE SHIFT. REPORT TO ONCOMING RN TO FOLLOW.
--- NOTE | 2022-02-20 15:19 | NUR ---
SHIFT SUMMARY PT AWAKE AGAIN AT START OF SHIFT. CALLS FOR NEEDS, SOMETIMES FREQUENTLY FOR LITTLE THINGS. PT CALLED LESS TODAY THAN YESTERDAY. PT CONTINUES TO BE WILLING TO TAKE HER ABX AND EVEN WILLING TO TAKE KCL TODAY. LIQUID CHANGED TO PILL FORM. LOOSE STOOLS DECREASED TODAY FROM YESTERDAY; MORE SUBSTANCE AND LESS LIQUID NOTED WELL. BUTTOCKS EXCORIATED FROM C-DIFF STOOLS. OINTMENT AND BARRIER CREAM APPLIED. PT UP TO EOB FOR MEALS AND THRU OUT THE DAY IN BETWEEN MORE TODAY. PT WORKED A SM AMT WITH P/T; WAS NOT ADAMANTLY OPPOSED TO DOING SOMETHING SHE WAS YESTERDAY. AWAKE MOST OF THE DAY, TALKING ON PHONE AND WATCHING TV. LINEN AND GOWN CHANGED. HAIR COMBED. PT ALLOWED DRSG TO R HEEL TO BE CHANGED THIS AFTERNOON. DENIED FURTHER NEEDS AT THIS TIME. CALL LT IN REACH.
[2022-02-21 05:14] LABS: BASOPHILS ABSOLUTE AUTO 0.03 K/mm3 (0.00-0.23); BASOPHILS PERCENT AUTO 0 % (0-2); EOSINOPHILS ABSOLUTE AUTO 0.33 K/mm3 (0.00-0.68); EOSINOPHILS PERCENT AUTO 4 % (0-6); Hematocrit 28.5 % (33.0-51.0); Hemoglobin 8.3 g/dL (11.5-16.0); IMMATURE GRAN ABSOLUTE AUTO 0.02 K/mm3 (0.00-0.10); IMMATURE GRAN PERCENT AUTO 0 % (0-1); LYMPHOCYTES ABSOLUTE AUTO 3.25 K/mm3 (0.84-5.20); LYMPHOCYTES PERCENT AUTO 42 % (21-46); MONOCYTES ABSOLUTE AUTO 0.59 K/mm3 (0.16-1.47); MONOCYTES PERCENT AUTO 8 % (4-13); Mean Corpuscular HGB 24.6 pg (26.0-34.0); Mean Corpuscular HGB Conc 29.1 g/dL (31.5-36.5); Mean Corpuscular Volume 84 fL (80-100); Mean Platelet Volume 10.3 fL (9.1-12.4); NEUTROPHILS ABSOLUTE AUTO 3.53 K/mm3 (1.96-9.15); NEUTROPHILS PERCENT AUTO 46 % (41-73); Platelet Count 319 K/mm3 (150-400); RDW Coefficient Variation 17.2 % (11.7-14.2); RDW Standard Deviation 52.5 fL (35.1-46.3); Red Blood Cell Count 3.38 M/mm3 (3.80-5.20); White Blood Cell Count 7.75 K/mm3 (4.00-11.30)
[2022-02-21 05:44] LABS: Albumin, Blood 2.2 g/dL (3.4-5.0); Anion Gap 4 mmol/L (6-16); Blood Urea Nitrogen 14 mg/dL (8-24); CO2, Blood 24 mmol/L (21-32); Calcium, Blood 8.4 mg/dL (8.5-10.1); Chloride, Blood 116 mmol/L (98-108); Creatinine, Blood 1.17 mg/dL (0.40-1.00); Glomerular Filtration Rate 50 (60-); Glucose, Blood 99 mg/dL (70-99); Magnesium, Blood 1.5 mg/dL (1.6-2.4); Phosphorus, Blood 3.3 mg/dL (2.5-4.9); Potassium, Blood 3.6 mmol/L (3.5-5.5); Sodium, Blood 144 mmol/L (136-145)
--- NOTE | 2022-02-21 06:55 | NUR ---
SHIFT SUMMARY PATIENT ALERT AND ORIENTED X3. MEDICATED PER EMAR FOR PAIN. NO ACUTE ISSUES NOTED OVERNIGHT. CALL LIGHT WITHIN REACH. REPORT GIVEN TO ONCOMING RN.
--- NOTE | 2022-02-21 15:20 | NUR ---
SHIFT SUMMARY PT RESTING QUIETLY AT START OF SHIFT. WOKE EASILY FOR CARE. UP TO EOB HERSELF TO WATCH TV AND TO EAT MEALS. PT CO-OP AGAIN TODAY WITH TAKING MEDICATIONS. K+ LEVEL NOW WNL'S. DIARRHEA AND FREQUENCY CONTINUES TO BE IMPROVED. PT EATING AND DRINKING WELL; BETTER EACH DAY. DECLINED FURTHER NEEDS AT THIS TIME. CALL LT IN REACH.
--- NOTE | 2022-02-22 05:28 | NUR ---
SHIFT SUMMARY PT INTERMITTENTLY REFUSING CARE - REFUSED PO PROBIOTIC AND AM LAB DRAW. PT SLEPT MOST OF THE NIGHT. C/O PAIN TO RIGHT HIP. PT DID NOT CONSENT TO WEAR OXYGEN AT NIGHT. NO ACUTE CHANGES. BED IN LOWEST POSITION, CALL LIGHT WITHIN REACH.
--- NOTE | 2022-02-22 18:36 | NUR ---
END OF SHIFT SUMMARY: PATIENT CONTINUES TO REFUSE CARE, SUCH LAB DRAWS, VITALS, AND SOME OF HER MEDICATIONS. PATIENT IS MOTIVATED BY THE PROSPECT OF GOING HOME. PATIENT ALLOWED RN TO CHANGE DRESSING ON THE RIGHT LEG AND TOOK MOST OF HER MORNING MEDICATIONS. PATIENT WAS INCONTINENT OF URINE TODAY. SHE REPORTED THAT HER SON AND HER "HELPER" WILL HELP HER GET CLEANED UP AT HOME. NO BOWEL MOVEMENT DURING THE DAY SHIFT. PATIENT DENIED ABDOMINAL DISCOMFORT AFTER THIS AM. PATIENT CONTINUES TO HAVE PAIN IN HER RIGHT HIP. SHE IS INDEPENDENT WITH BED REPOSITIONING AND SITTING AT THE SIDE OF THE BED.
--- NOTE | 2022-02-23 04:29 | NUR ---
SHIFT SUMMARY PT SLEPT OFF AND ON THROUGHOUT THE NIGHT. REPORTS PAIN TO R HIP INTERMITTENTLY. MEDICATED X 1 W/ 1 TAB PERCOCET. DRESSING TO RLE REMAINED INTACT. NO STOOL STILL THIS EVENING. PT TOOK ALL MEDICATIONS. DECLINED TO GET OUT OF BED, STATING SHE "CANT". PT DID STATE THAT SHE WOULD WORK WITH PHYSICAL THERAPY TODAY. VITAL SIGNS STABLE. NO ACUTE CHANGES THIS SHIFT.
[2022-02-23 05:32] LABS: Hematocrit 28.9 % (33.0-51.0); Hemoglobin 8.7 g/dL (11.5-16.0); Mean Corpuscular HGB 25.2 pg (26.0-34.0); Mean Corpuscular HGB Conc 30.1 g/dL (31.5-36.5); Mean Corpuscular Volume 84 fL (80-100); Mean Platelet Volume 10.5 fL (9.1-12.4); Platelet Count 347 K/mm3 (150-400); RDW Coefficient Variation 17.2 % (11.7-14.2); RDW Standard Deviation 52.4 fL (35.1-46.3); Red Blood Cell Count 3.45 M/mm3 (3.80-5.20); White Blood Cell Count 8.86 K/mm3 (4.00-11.30)
[2022-02-23 05:57] LABS: Albumin, Blood 2.5 g/dL (3.4-5.0); Anion Gap 8 mmol/L (6-16); Blood Urea Nitrogen 19 mg/dL (8-24); Bun/Creatinine Ratio 16.1 (12.0-20.0); CO2, Blood 23 mmol/L (21-32); Calcium, Blood 8.5 mg/dL (8.5-10.1); Chloride, Blood 114 mmol/L (98-108); Creatinine, Blood 1.18 mg/dL (0.40-1.00); Glomerular Filtration Rate 50 (60-); Glucose, Blood 102 mg/dL (70-99); Magnesium, Blood 1.9 mg/dL (1.6-2.4); Phosphorus, Blood 3.7 mg/dL (2.5-4.9); Potassium, Blood 4.1 mmol/L (3.5-5.5); Sodium, Blood 145 mmol/L (136-145)
[2022-02-23 05:58] LABS: BASOPHILS ABSOLUTE MAN 0.26 K/mm3 (0.00-0.23); BASOPHILS PERCENT MAN 3 % (0-2); EOSINOPHILS ABSOLUTE MAN 0.35 K/mm3 (0.00-0.68); EOSINOPHILS PERCENT MAN 4 % (0-6); LYMPHOCYTES ABSOLUTE MAN 4.43 K/mm3 (0.84-5.20); LYMPHOCYTES PERCENT MAN 50 % (21-46); MONOCYTES PERCENT MAN 0 % (4-13); SEG NEUTROPHILS PERCENT MAN 43 % (41-73); TOTAL CELLS COUNTED 100
--- NOTE | 2022-02-23 16:24 | NUR ---
SHIFT SUMMARY NO ACUTE CHANGES TO PRESENT THIS SHIFT. PT CONTINUES TO REFUSE SOME CARE AND AGREEABLE TO OTHERS. PT WAS A LITTLE GRUMPY THIS AM ABOUT NOT WANTING TO WORK WITH THERAPY. PER SHIFT REPORT, PT ALSO REFUSING TO GO TO SNF. PT REMAINS INCONTINENT OF BOWEL AND BLADDER. LOOSE STOOL X1 THIS AFTERNOON, BUT NONE PREVIOUS COUPLE OF DAYS PER REPORT. POSSIBLE D/C TO HOME TOMORROW. PT INSTRUCTED ON MEDICATION COMPLIANCE IMPORTANCE AFTER D/C. PT VERBALIZES UNDERSTANDING, BUT DOES NOT ALWAYS FOLLOW THRU. LINENS AND GOWN CHANGED AGAIN TODAY. PT UP TO EOB MULTIPLE TIMES THRU OUT THE DAY. DECLINED NEEDING ANYTHING FOR PAIN. PT REPORTED THAT SHE WILL CALL. SITTING UP WATCHING TV. NO FURTHER NEEDS AT THIS TIME. CALL LT IN REACH.
--- NOTE | 2022-02-24 04:22 | NUR ---
NIGHTSHIFT SUMMARY Patient AOx3, pleasant/cooperative with cares. Patient reports pain in RLE, asking for helping when sitting up or repositioning in bed. Mepilex applied to right calf/heel CDI. Percocet given for pain, PRN effective. Vitals stable, plan is to discharge home. Will continue to monitor.
[2022-02-24] MEDS ORDERED: DIFICID200 MG PO (11:34)
--- NOTE | 2022-02-24 12:00 | NUR ---
SEVERINO WAS DISCHARGED TO THE CARE OF [facility], AND TRANSPORTED WITH ALL HER BELONGINGS. SHE WAS ESCORTED OUT VIA A WHEELCHAIR, WEARING PAPER SCRUBS BECAUSE HER CLOTHING WAS SOILED PRIOR TO ARRIVAL. DISCHARGE TEACHING COMPLETED. MEDS FAXED TO [facility] BY CHARGE NURSE CALISTA Gaines PT HAS NO FURTHER QUESTIONS AT THIS TIME.
== END 2022-02-24 12:11 | disposition home health service (06) | DRG 871 ==
LOC: ER 15:26 → PCU 20:46 → MEDS 02-15 23:56
PROVIDERS: Family Medicine; Internal Medicine; Physician Assistant; Student in an Organized Health Care Education/Training Program; ADMIT Internal Medicine
DX: A41.51 Sepsis due to Escherichia coli [E. coli] (principal); G92.9 Unspecified toxic encephalopathy; A04.72 Enterocolitis due to Clostridium difficile, not specified as recurrent; N39.0 Urinary tract infection, site not specified; E87.29 Other acidosis; N17.9 Acute kidney failure, unspecified; G89.29 Other chronic pain; J44.9 Chronic obstructive pulmonary disease, unspecified; F17.200 Nicotine dependence, unspecified, uncomplicated; I12.9 Hypertensive chronic kidney disease with stage 1 through stage 4 chronic kidney disease, or unspecified chronic kidney disease; Z66 Do not resuscitate; S30.810A Abrasion of lower back and pelvis, initial encounter; L98.499 Non-pressure chronic ulcer of skin of other sites with unspecified severity; N18.2 Chronic kidney disease, stage 2 (mild); E86.0 Dehydration; D63.1 Anemia in chronic kidney disease; E78.5 Hyperlipidemia, unspecified; E11.22 Type 2 diabetes mellitus with diabetic chronic kidney disease; G47.33 Obstructive sleep apnea (adult) (pediatric); E87.6 Hypokalemia; Z91.012 Allergy to eggs; Z91.018 Allergy to other foods; Z91.041 Radiographic dye allergy status; Z79.899 Other long term (current) drug therapy; Z86.73 Personal history of transient ischemic attack (TIA), and cerebral infarction without residual deficits; Z74.01 Bed confinement status; Z98.890 Other specified postprocedural states
CPT/HCPCS: 36415; 51702; 71045; 80048; 80053; 80069; 81001; 82570; 82803; 82947; 83605; 83690; 83735; 84100; 84300; 84484; 84540; 85025; 87040; 87077; 87086; 87186; 93005; 93010; 94760; 94762; 96361; 96374-59; 96375-59; 97110; 97162; 97165; 97530; 99284-25; A9270; J0696; J1200; J1650; J2405; J7030; J7120

== ENCOUNTER 2022-08-05 14:36 | Inpatient (IN) | payer OTHER ==
[~2022-08-05] VITALS: Ht 162.6 cm; Wt 61.5 kg
[~2022-08-05 14:36] MED LIST changes: +ACET500 PO; +BACITRACIN ZIN1 EAC1 TOP; +DIFICID200 MG PO
[2022-08-05 16:36] LABS: BASOPHILS ABSOLUTE AUTO 0.03 K/mm3 (0.00-0.23); BASOPHILS PERCENT AUTO 0 % (0-2); EOSINOPHILS ABSOLUTE AUTO 0.03 K/mm3 (0.00-0.68); EOSINOPHILS PERCENT AUTO 0 % (0-6); Hematocrit 22.3 % (33.0-51.0); Hemoglobin 6.4 g/dL (11.5-16.0); IMMATURE GRAN ABSOLUTE AUTO 0.09 K/mm3 (0.00-0.10); IMMATURE GRAN PERCENT AUTO 1 % (0-1); LYMPHOCYTES ABSOLUTE AUTO 2.68 K/mm3 (0.84-5.20); LYMPHOCYTES PERCENT AUTO 15 % (21-46); MONOCYTES ABSOLUTE AUTO 1.19 K/mm3 (0.16-1.47); MONOCYTES PERCENT AUTO 7 % (4-13); Mean Corpuscular HGB 23.3 pg (26.0-34.0); Mean Corpuscular HGB Conc 28.7 g/dL (31.5-36.5); Mean Corpuscular Volume 81 fL (80-100); Mean Platelet Volume 10.1 fL (9.1-12.4); NEUTROPHILS ABSOLUTE AUTO 13.87 K/mm3 (1.96-9.15); NEUTROPHILS PERCENT AUTO 77 % (41-73); Platelet Count 566 K/mm3 (150-400); RDW Coefficient Variation 19.9 % (11.7-14.2); RDW Standard Deviation 57.6 fL (35.1-46.3); Red Blood Cell Count 2.75 M/mm3 (3.80-5.20); White Blood Cell Count 17.89 K/mm3 (4.00-11.30)
[2022-08-05 16:55] LABS: Albumin, Blood 1.8 g/dL (3.4-5.0); Albumin/Globulin Ratio 0.4 (0.8-1.8); Bilirubin, Total 0.1 mg/dL (0.1-1.0); Bun/Creatinine Ratio 26.1 (12.0-20.0); Calcium, Blood 8.8 mg/dL (8.5-10.1); Creatinine, Blood 0.81 mg/dL (0.40-1.00); Globulin, Blood 4.4 g/dL (2.2-4.0); Potassium, Blood 4.3 mmol/L (3.5-5.5); Total Protein, Blood 6.2 g/dL (6.4-8.2)
[2022-08-05] MEDS ORDERED: HYDROCODONE-AC1 EA19 PO (18:54)
[2022-08-05] MEDS ORDERED: Cyclobenzaprine5 MG PO (18:55)
[2022-08-05] MEDS ORDERED: Ventolin/Prove6.7 GM INH (23:27)
[2022-08-05] MEDS ORDERED: PANTOPRAZOLE SO40 M2 PO (23:28)
[2022-08-05] MEDS ORDERED: Clotrimazole-Be15 GM TOP (23:29)
[2022-08-06 01:34] LABS: Source, Urine Straight Cath
[2022-08-06 01:39] LABS: Appearance, Urine Turbid (Clear); Bilirubin, Urine Neg (Neg); Blood, Urine 3+ (Neg); Color, Urine Yellow (P-Yellow); Glucose Qualitative, Urine Neg (Neg); Ketones, Urine Neg (Neg); Leukocyte Esterase, Urine 3+ (Neg); Nitrite, Urine Neg (Neg); Protein, Urine 2+ (Neg); Specific Gravity, Urine 1.015 (1.003-1.022); Urobilinogen, Urine NORM (Normal)
[2022-08-06 02:06] LABS: Bacteria Many /hpf; Red Blood Cells, Urine 0-2 /hpf (0-2); Squamous Epithelial Cells Not Seen /hpf (Few); White Blood Cells, Urine TNTC /hpf (0-5); Yeast/Fungi Urine Few /hpf
[2022-08-06 05:19] LABS: Hematocrit 20.3 % (33.0-51.0); Mean Corpuscular HGB 22.9 pg (26.0-34.0); Mean Corpuscular HGB Conc 28.1 g/dL (31.5-36.5); Mean Corpuscular Volume 82 fL (80-100); Mean Platelet Volume 11.1 fL (9.1-12.4); Platelet Count 328 K/mm3 (150-400); RDW Coefficient Variation 19.9 % (11.7-14.2); RDW Standard Deviation 58.9 fL (35.1-46.3); Red Blood Cell Count 2.49 M/mm3 (3.80-5.20); White Blood Cell Count 13.63 K/mm3 (4.00-11.30)
[2022-08-06 05:26] LABS: Hemoglobin 5.7 g/dL (11.5-16.0)
[2022-08-06 05:42] LABS: Percent Saturation 4.6 % (15.0-50.0)
--- NOTE | 2022-08-06 07:22 | NUR ---
REPORT FROM WILLY LO RN- PT ARRIVED IN ROOM 2229- PHOTOS OF WOUNDS DONE AND WOUNDS CLENSED AND COVERED APPROPRIATE- PT REFUSED BLOOD TRANSFUSION AT THIS TIME- PT REPORTED THAT SHE WAS JEHOVAH WITNESS AND ISN'T REFUSING TOTALLY BUT WANTS TO THINK ABOUT BLOOD TRANSFUSION AND DISCUSS WITH DR.- ORDERS TO CHECK IRON AND OK TO HOLD OFF ON TRANSFUSION- ORDER FOR IRON THIS AM- PT ORIGINALLY REFUSED- DR. ROBLEDO REQUESTED TO DISCUSS THAT WITH PT THAT IT'S NOT A BLOOD PRODUCT - PT FINALLY AGREED TO IRON INFUSION - PT TURNED AND PILLOW SUPPORT-
--- NOTE | 2022-08-06 11:27 | NUR ---
PATIENT OFF FLOOR FOR IMAGING.
--- NOTE | 2022-08-06 14:48 | NUR ---
Pt resting in bed with her eyes closed. Pt wakes to gentle verbal stimuli. Pt A&OX3/4. She is unable to verbalize appropriate year but does know the current president. Attempted to engage in conversation regarding code status wishes. Pt closes her eyes and quits interacting. Spoke with Primary RNs Zhane. Discussed case and concerns. Pt to the ED with maggots in the wound and intermittently confused. Attempted to call Pt's son who is listed as healthcare proxy in H&P. Attempted several times throughout the day with receiving busy signal. Called and spoke with Pt's PCP Dr Maurice and staff. Obtained phone number for friend listed as contact. Name is Wayne Gutierrez. Received fax for [employer] which shows Full Code. Spoke with Dr Maurice who reports Pt has been resistant to recommendations and is non compliant with care. Called and spoke with friend Tamir Hernandez [phone]. He reports being an ex roomate of Pt. Stone also reports Pt's son is out of country and does not have contact information for him. Spoke with RN Marcus Marmolejo and discussed case. Palliative Care will remain available
--- NOTE | 2022-08-06 15:20 | NUR ---
PATIENT SLEEPING THROUGHOUT SHIFT BUT WAKES EASILY. SAT UP FOR BREAKFAST, DENIES PAIN UNTIL MOVED/TRANSFERED. ORIENTED TO SELF. HOME SAFETY CONCERNS. MULTIPLE WOUNDS, WILL HAVE CONSULT WITH DR HASKINS TODAY. PATIENT DECLINES BLOOD TRANSFUSIONS DUE TO BEING JEHOVA WITNESS. DAR LIGHT IN REACH, BED IN LOW POSITION, BED ALARM ON.
--- NOTE | 2022-08-06 17:46 | NUR ---
THIS CHECKOUT SUPERVISOR HAS REVIEWED AND AGREES WITH ALL NOTES AND ASSESSMENTS BY DESIRAE YOGI.
--- NOTE | 2022-08-06 21:12 | NUR ---
CALL TO GLOBE TESTER CALLED GLOBE TESTER (JAMI) AT [phone] TO NOTIFY THAT THE PT HAS BEEN TRANSFERRED TO [facility]. SHE STATED THAT SHE WILL COME BY IN THE MORNING AND THAT HER AGENCY HAS CARED FOR THE PT OVER THE LAST COUPLE OF YEARS. REQUESTED A WORKING PHONE NUMBER FOR THE PT'S SON AND SHE STATED "HE HAS NOT REALLY BEEN INVOLVED BUT I WILL CHECK IN THE OFFICE IN THE MORNING FOR CONTACT INFO". PHONE NUMBER FOR PT'S SON IN THE CHART HAS BEEN DISCONNECTED.
--- NOTE | 2022-08-06 21:15 | NUR ---
PATIENT ARRIVED FROM MEDICAL FLOOR ALERT TO SELF, MULTIPLE WOUNDS, MORSE IN PLACE. ON NC 2L. NO FAMILY AT BEDSIDE.
--- NOTE | 2022-08-06 22:24 | NUR ---
1900 ASSUMED CARE- REPORT FROM DAY SHIFT RN- PT LAYING IN BED DURING BEDSIDE ROUNDS- NOTIFIED BY DAY SHIFT RN AUGUST THAT PT BP IS 84/48 WITH HR 120-150- PHOEN CALL TO DR. WEISS RE: VITALS AND EXPRESSED CONCERNS OF PT BEING HYPOTENSIVE, TACHYCARDIC, WITH HEMOGLOBIN OF 5.4- NEW ORDER IN TO BOLUS 500ML AND TRANSFER TO PCU- REPORT GIVE TO ORA RN- PT TRANSFERRED TO PCU AT 2100
--- NOTE | 2022-08-07 01:04 | NUR ---
NOTIFIED DR. TAYLOR REGARDING HYPOTENSION. PER DR. TAYLOR KEEP MAP >65
--- NOTE | 2022-08-07 02:10 | NUR ---
NOTIFIED DR. TAYLOR OF HYPOTENSION 84/49 (61) ORDERS RECEIVED.
[2022-08-07 04:17] LABS: BASOPHILS ABSOLUTE AUTO 0.03 K/mm3 (0.00-0.23); BASOPHILS PERCENT AUTO 0 % (0-2); EOSINOPHILS ABSOLUTE AUTO 0.15 K/mm3 (0.00-0.68); EOSINOPHILS PERCENT AUTO 1 % (0-6); Hematocrit 19.2 % (33.0-51.0); IMMATURE GRAN PERCENT AUTO 1 % (0-1); LYMPHOCYTES ABSOLUTE AUTO 1.99 K/mm3 (0.84-5.20); LYMPHOCYTES PERCENT AUTO 13 % (21-46); MONOCYTES ABSOLUTE AUTO 0.87 K/mm3 (0.16-1.47); MONOCYTES PERCENT AUTO 6 % (4-13); Mean Corpuscular HGB 23.5 pg (26.0-34.0); Mean Corpuscular HGB Conc 30.2 g/dL (31.5-36.5); Mean Corpuscular Volume 78 fL (80-100); Mean Platelet Volume 10.1 fL (9.1-12.4); NEUTROPHILS ABSOLUTE AUTO 12.45 K/mm3 (1.96-9.15); NEUTROPHILS PERCENT AUTO 80 % (41-73); Platelet Count 543 K/mm3 (150-400); RDW Coefficient Variation 19.7 % (11.7-14.2); RDW Standard Deviation 55.4 fL (35.1-46.3); Red Blood Cell Count 2.47 M/mm3 (3.80-5.20); White Blood Cell Count 15.59 K/mm3 (4.00-11.30)
[2022-08-07 04:40] LABS: Hemoglobin 5.8 g/dL (11.5-16.0)
[2022-08-07 04:46] LABS: Albumin, Blood 1.3 g/dL (3.4-5.0); Albumin/Globulin Ratio 0.4 (0.8-1.8); Bilirubin, Total 0.2 mg/dL (0.1-1.0); Bun/Creatinine Ratio 22.8 (12.0-20.0); Calcium, Blood 7.6 mg/dL (8.5-10.1); Creatinine, Blood 0.7 mg/dL (0.40-1.00); Globulin, Blood 3.6 g/dL (2.2-4.0); Potassium, Blood 3.4 mmol/L (3.5-5.5); Total Protein, Blood 4.9 g/dL (6.4-8.2)
--- NOTE | 2022-08-07 11:12 | NUR ---
AT 1030, LAB CONTACTED THIS RN TO INFORM THAT THE PT IS REFUSING BLOOD DRAWS AFTER TECH MISSED FIRST ATTEMPT. PT CURRENTLY REFUSING TO BE TURNED IN BED EVEN WITH REMINDERS THAT SHE IS HIGH RISK FOR BED SORES, WILL CONTINUE TO TRY AND CONVINVE PT TO ALLOW TURNS. PT HOME HEALTH NURSE PLANNING ON VISITING TO HELP DISCUSS CARE WITH PT SINCE HOME HEALTH RN HAS SOME RAPPORT WITH PT. LAB WILL BE ASKED TO TRY ANOTHER BLOOD DRAW ATTEMPT WHEN HOME HEALTH RN ARRIVES.
--- NOTE | 2022-08-07 12:34 | NUR ---
Spoke with Dr Lacey and discussed case. Initial consideration was to consider ethics consult as Pt was not waking. Pt currently awake, A&O. Caregivers from [facility] at bedside. Conversation took place regarding hospice and comfort care with Pt being in agreement. Pt resting in bed and is A&O. Confirmed with Pt regarding comfort care and hospice wishes and assessed Pt's understanding. Pt reports having a family member on hospice in the past. Gentle education re-enforcement of comfort care and hospice philosophy. Pt confirms wishes for comfort care and hospice. Spoke with Primary RN Jama, RN Marcus Maier and discussed case. Placed comfort care order, comfort care order set, and hospice referral per V/O from Dr Banda. Palliative Care will remain available
[2022-08-07 12:41] LABS: Vancomycin, Trough 20.8 ug/mL (5.0-10.0)
--- NOTE | 2022-08-07 12:49 | NUR ---
UPDATE STAFF ELECTRICAL ENGINEER FROM [facility] ARRIVED TO PCU AROUND 1100. DR NOTIFIED THAT PT HAS BEEN MORE ALERT SINCE [facility] STAFF HAS ARRIVED. DR CAME TO PT ROOM TO DISCUSS CARE WITH PT. DR DISCUSSED HOSPICE/COMFORT CARE WITH PT, DUE TO PT H&H LOW LEVELS AND NOT WANTING TO RECIEVE BLOOD DUE TO RELIGION BELEIFS. PALLIATIVE CARE CONSULTED AND DISCUSSED COMFORT CARE/HOSPICE WITH PT WITH THIS RN AND DOCTOR PRESENT. POLST SIGNED BY PT. [facility] STAFF PRESENT DURING DISCUSSION ABOVE.
--- NOTE | 2022-08-07 13:14 | NUR ---
F/U visit. Pt resting in bed eating her lunch. Pt agreeable to complete POLST. Assisted with completing POLST with Pt confirming wishes for DNR and Comfort Measures Only. Pt reports no longer wanting lab draws or to contnue antibiotics. Completed POLST with Pt. Spoke with Dr Banda, D/C antibiotics and maintenance medications per V/O from Dr Lacey. Spoke with Primary RN Jama and discussed case. Palliative Care will remain available
--- NOTE | 2022-08-07 18:52 | NUR ---
SHIFT SUMMARY PT A/O, REFUSES SOME CARE DUE TO PAIN. PT REFUSED MOST Q2 TURNS EVEN AFTER BEING MEDICATED. PT AGREED TO SWITCH TO COMFORT CARE AFTER DISCUSSION WITH DOCTOR, THIS RN, AND PALLIATVE CARE RN, SEE PREVIOUS NOTES FROM THIS RN AND PALLIATIVE NOTES. POLST IN ROOM AWAITING DR WU. PT GIVEN A BED BATH, BANDAGES CHANGED, PT BECAME IRRITATED DURING BED BATH DUE TO PAIN. DILAUDID ORDERED FOR BREAKTHROUGH PAIN, SEE ORDERS. MORSE IN PLACE DRAINING TO GRAVITY, YELLOW URINE. NO REPORT OF SOB/DYSPNEA THROUGHOUT SHIFT. NO REPORT OF CHEST PAIN/PRESSURE THROUGHOUT SHIFT.
--- NOTE | 2022-08-08 05:56 | NUR ---
RECIVED PATIENT FROM PCU, ORIENTED TO SELF AND SITUATION. PATIENT PAIN TREATED PER MAR, NO IV, FC DRAINING TO GRAVITY. SEE PICTURES IN CHART.
[2022-08-08] MEDS ORDERED: ATROPINE SULFATE2 M1 SL (12:58)
[2022-08-08] MEDS ORDERED: Cyclobenzaprine5 MG PO (12:59)
[2022-08-08] MEDS ORDERED: Ativan1 MG PO (13:01)
[2022-08-08] MEDS ORDERED: MORP20L PO (13:02)
[2022-08-08] MEDS ORDERED: TRANSDERM-SCOP1 EA10 TOP (13:04)
--- NOTE | 2022-08-08 18:27 | NUR ---
SHIFT SUMMARY: PT A&O X1-2. PT IN 02/23 PAIN IN ALL WOUND SITES THIS SHIFT. MEDICATED WITH PRN NORCO AND ATIVAN. PT TO BE D/C AT 1900 GOING HOME W/ [facility]. PT REFUSED ALL CARE TODAY INCLUDING SKIN CHECK, ASSESSMENTS, AND WOUND CARE. WOUND PICTURES IN CHART. CALL LIGHT IN REACH. WILL CONTINUE TO MONITOR.
--- NOTE | 2022-08-08 22:02 | NUR ---
PT DISCHARGED AT 2130 AND PICKED UP BY AMBULANCE SERVICE. PT DISCHARGED WITH ALL BELONGINGS AND PAPERWORK.
== END 2022-08-08 21:28 | disposition hospice, home (50) | DRG 871 ==
LOC: ER 14:36 → MEDS 21:15 → PCU 21:15 → MEDS 21:17 → PCU 08-06 21:01 → MEDS 08-08 04:32
PROVIDERS: Family Medicine; Pharmacist; Physician Assistant; ADMIT Internal Medicine
PROC: 3E03329 Introduction of Other Anti-infective into Peripheral Vein, Percutaneous Approach (ICD-10-PCS; principal; 2022-08-05)
PROC: 0T9B70Z Drainage of Bladder with Drainage Device, Via Natural or Artificial Opening (ICD-10-PCS; 2022-08-05)
DX: A41.9 Sepsis, unspecified organism (principal); G92.8 Other toxic encephalopathy; L89.624 Pressure ulcer of left heel, stage 4; L89.614 Pressure ulcer of right heel, stage 4; L89.523 Pressure ulcer of left ankle, stage 3; L89.513 Pressure ulcer of right ankle, stage 3; L89.893 Pressure ulcer of other site, stage 3; L03.115 Cellulitis of right lower limb; L03.116 Cellulitis of left lower limb; G89.29 Other chronic pain; R65.20 Severe sepsis without septic shock; Z51.5 Encounter for palliative care; Z66 Do not resuscitate; Z74.01 Bed confinement status; Z53.1 Procedure and treatment not carried out because of patient's decision for reasons of belief and group pressure; M25.551 Pain in right hip; M25.552 Pain in left hip; E11.51 Type 2 diabetes mellitus with diabetic peripheral angiopathy without gangrene; J44.9 Chronic obstructive pulmonary disease, unspecified; I12.9 Hypertensive chronic kidney disease with stage 1 through stage 4 chronic kidney disease, or unspecified chronic kidney disease; D63.1 Anemia in chronic kidney disease; E11.22 Type 2 diabetes mellitus with diabetic chronic kidney disease; N18.9 Chronic kidney disease, unspecified; E11.40 Type 2 diabetes mellitus with diabetic neuropathy, unspecified; L98.429 Non-pressure chronic ulcer of back with unspecified severity; E78.5 Hyperlipidemia, unspecified; F17.200 Nicotine dependence, unspecified, uncomplicated; L89.159 Pressure ulcer of sacral region, unspecified stage; L98.419 Non-pressure chronic ulcer of buttock with unspecified severity; L98.499 Non-pressure chronic ulcer of skin of other sites with unspecified severity; G47.33 Obstructive sleep apnea (adult) (pediatric); Z91.14 Patient's other noncompliance with medication regimen; Z86.73 Personal history of transient ischemic attack (TIA), and cerebral infarction without residual deficits; Z99.81 Dependence on supplemental oxygen; Z98.51 Tubal ligation status; Z98.891 History of uterine scar from previous surgery; Z88.8 Allergy status to other drugs, medicaments and biological substances; Z79.2 Long term (current) use of antibiotics; Z79.51 Long term (current) use of inhaled steroids; Z79.899 Other long term (current) drug therapy
CPT/HCPCS: 36415; 51702; 70450; 73630; 74176; 80053; 80202; 81001; 82607; 82728; 82746; 82947; 83540; 83550; 83605; 84145; 85025; 85027; 85651; 86140; 86850; 86900; 86901; 86923; 87040; 87086; 87106; 93005; 93010; 93922; 93970; 94760; 96361-59; 96374-59; 99285-25; A9270; J0692; J1170; J1630; J2405; J2543; J2916; J3370; J7040; J7050; J7120